=== PATIENT | female | born 1970 | race Caucasian/White ===

== ENCOUNTER 2020-02-17 15:12 | Outpatient (CLI) | payer BC, SELFPAY ==
--- NOTE | ~2020-02-17 | XR_ITS ---
EXAMINATION: XR sternum min 2V INDICATION: Sternal pain TECHNIQUE: AP and bilateral oblique views of the sternum were obtained. COMPARISON: None available FINDINGS: No definite abnormality of the sternum is identified. The chest wall soft tissues are unrem arkable. Surgical clips in the right upper quadrant are likely from prior cholecystectomy. IMPRESSION: 1. No definite abnormality of the sternum although sensitivity of radiographs is low. Reviewed, dictated and finalized at location A. IMPRESSION: 1. No definite abnormality of the sternum although sensitivity of radiographs i s low.
--- NOTE | ~2020-02-17 | XR_ITS ---
EXAMINATION: XR chest 2V DATE: 02/17/2020 15:50 INDICATION: Sternal pain, sensitive to touch TECHNIQUE: PA and lateral views of the chest are obtained. COMPARISON: 10/28/2017 FINDINGS: The lungs are free of acute opacities. There is no pleural effusion or pneumothorax. The ca rdiomediastinal silhouette is normal. There is mild thoracic spondylosis. Surgical clips in the right upper quadrant are likely from prior cholecystectomy. IMPRESSION: 1. No acute cardiopulmonary abnormality. Reviewed, dictated and finalized at location A.
== END 2020-02-17 15:13 | disposition home or self-care (01) ==
LOC: CHSIMG 15:14
PROVIDERS: PCP Family Medicine; Visit Provider Family Medicine
DX: R07.89 Other chest pain (principal)
CPT/HCPCS: 71046; 71120

== ENCOUNTER 2020-05-18 13:51 | Outpatient (CLI) | payer BC, SELFPAY ==
--- NOTE | ~2020-05-18 | US_ITS ---
EXAMINATION: US soft tissue chest EXAM DATE: 05/18/2020 14:13 INDICATION: Sternal region mass. TECHNIQUE: Multiple grayscale and Doppler images of the soft tissue chest were obtained (by a technol ogist who performed the scan) and subsequently reviewed. There is no prior study for comparison. FINDINGS: Scanning in the area of clinical concern midline, inferior to the xiphoid there is a subcutaneous mas s which is isoechoic to subcutaneous fat, most likely an encapsulated lipoma measuring 0.8 x 1.8 x 1. 7 cm. IMPRESSION: Fat echogenicity region which could be an encapsulated lipoma. Reviewed, dictated and finalized at location A. THESIOLOGISTS' ASSISTANT
== END 2020-05-18 13:52 | disposition home or self-care (01) ==
LOC: CHSIMG 13:52
PROVIDERS: PCP Family Medicine; Visit Provider Family Medicine
DX: R22.2 Localized swelling, mass and lump, trunk (principal)
CPT/HCPCS: 76604

== ENCOUNTER → 2021-04-05 11:56 | Outpatient (CLI) | payer OTHER, SELFPAY ==
--- NOTE | ~2021-04-05 | MM_ITS ---
EXAMINATION: MM screening [facility] BI w jessica HISTORY: Screening mammogram TECHNIQUE: Craniocaudal and mediolateral oblique 3-D tomosynthesis images were obtained and synthetic 2-D images were generated. CAD analysis was submitted and interpreted. COMPARISON: 05/04/2019, 01/28/2016, 12/11/2012 BREAST PARENCHYMAL COMPOSITION: There are scattered areas of fibroglandular density. FINDINGS: There is no evidence of suspicious mass, calcification, or architectural distortion to sugg est malignancy in either breast. There has been no suspicious interval change. IMPRESSION: 1. No mammographic evidence of malignancy. 2. Recommend routine screening mammography in one year. BI-RADS Category 1: Negative Reviewed, dictated and finalized at location B.
== END ==
PROVIDERS: Visit Provider Obstetrics & Gynecology
DX: Z12.31 Encounter for screening mammogram for malignant neoplasm of breast (principal)
CPT/HCPCS: 77063; 77067

== ENCOUNTER → 2021-05-28 02:56 | Outpatient (CLI) | payer OTHER, SELFPAY ==
[2021-05-28 20:04] LABS: SARS-CoV-2 RNA PCR Negative
== END ==
PROVIDERS: Visit Provider Internal Medicine Gastroenterology
DX: Z01.812 Encounter for preprocedural laboratory examination (principal); Z20.822 Contact with and (suspected) exposure to COVID-19
CPT/HCPCS: C9803; U0003; U0005

== ENCOUNTER 2021-05-31 00:29 | Day surgery (SDC) | payer OTHER, SELFPAY ==
[2021-05-15 09:20] VITALS: BMI 26.6
[2021-05-31 06:22] VITALS: BP 100/68; PULSE 90; RESP 18; TEMP 36.4; O2SAT 100; BMI 26.4
[2021-05-31] MEDS: LACTATED RINGERS 1,000 ML 150 ML IV CONT (06:31)
--- NOTE | 2021-05-31 06:51 | WPDANESEPPF ---
Anes - Initial Pre Proc Eval Procedure: Operation Date: 05/31/21 07:30 Proposed Procedures p Screening Colonoscopy - Negrito Castillo MD Date/Time: 05/31/21 06:51 Surgeon: Negriot Castillo MD Pre Op Diagnosis: neoplasm screening Patient Data Age: 50 Gender: F Height: 1.6 m Weight: 67.8 kg Last Vital Signs Temp 36.4 C L 05/31/21 06:22 Pulse 90 05/31/21 06:22 Resp 18 05/31/21 06:22 BP 100/68 05/31/21 06:22 Pulse Ox 100 05/31/21 06:22 Allergies Allergy/AdvReac Type Severity Reaction Status Date / Time No Known Allergies Allergy Verified 05/31/21 06:20 Home Medications Medication Instructions Recorded Confirmed Type No Home Medications 03/01/20 05/31/21 History Patient hx anesthesia problems: none Family hx anesthesia problems: none Results Review: All pre-operative results and documents have been reviewed as part of the pre-operative evaluation. 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 Smoker Surgical History Surgical History History of cholecystectomy History of tubal ligation Status post colposcopy Family History Family History Grandparent Carcinoma of colon Other Diabetes mellitus Social History Social History Smoking packs per day: 1 Smoking cigarettes per day: 20.0 Years smoked: 30 Smoking pack-years: 30.00 Smoking status: Current some day smoker Tobacco type: cigarettes Smoking end date: 01/14/21 Alcohol intake: current Substance use: unknown Substance use type: does not use Living arrangements: with family Anes - Eval Final PreProcedure Day of Procedure 05/31/21 06:51 Patient weight: overweight Heart: regular rate and rhythm Lungs: clear to auscultation Airway: Mallampati scale class II Neurological: alert and oriented Last oral intake: >/= 8 hours ASA classification: II Emergent: no Anesthetic plan: proceed Anesthesia type and monitoring: general GIVS and standard monitoring Results Review: All pre-operative results and documents have been reviewed as part of the pre-operative evaluation. Informed Consent: The patient's anesthetic plan and its attendant risks and benefits were discussed with the patient/family/POA. Questions were solicited and answers provided to the satisfaction of the patient/family/POA.
--- NOTE | 2021-05-31 07:17 | PM.HPGS ---
History of Present Illness History of Present Illness Consent: Risks, benefits, and alternatives have been discussed and questions answered. Patient agrees to proceed with procedure. Chief complaint: neoplasm screening Narrative: Santa Roach is a 50 year old female with last colonoscopy 7 years ago, history of polyps. Review of Systems Constitutional: Constitutional: Denies headache(s) and Denies weakness Eyes: Eyes: Denies blurry vision ENT: Reports Normal hearing present, Denies headache(s) and Denies neck pain Cardiovascular: Cardiovascular: Denies chest pain and Denies dyspnea Respiratory: Respiratory: Denies dyspnea Gastrointestinal: Gastrointestinal: Reports no additional gastrointestinal complaints Genitourinary: Genitourinary: Denies dysuria Musculoskeletal: Musculoskeletal: Denies neck pain Integumentary/Breasts: Skin/Breast: Denies dry skin Neurologic: Reports Normal hearing present, Denies headache(s) and Denies weakness Psychiatric: Psychiatric: Denies anxiety Endocrine: Endocrine: Denies change in body appearance Hematologic/Lymphatic: Hematologic/Lymphatic: Denies easy bleeding Allergic/Immunologic: Allergic/Immunologic: Denies urticaria PMFSH Past Medical History Medical History Colon polyp Herpes simplex without complication Smoker Surgical History Surgical History History of cholecystectomy History of tubal ligation Status post colposcopy Family History Family History Grandparent Carcinoma of colon Other Diabetes mellitus Social History Social History Smoking packs per day: 1 Smoking cigarettes per day: 20.0 Years smoked: 30 Smoking pack-years: 30.00 Smoking status: Current some day smoker Tobacco type: cigarettes Smoking end date: 01/14/21 Alcohol intake: current Substance use: unknown Substance use type: does not use Living arrangements: with family Meds Home Medications and Allergies Home Medications Medication Instructions Recorded Confirmed Type No Home Medications 03/01/20 05/31/21 History Allergies Allergy/AdvReac Type Severity Reaction Status Date / Time No Known Allergies Allergy Verified 05/31/21 06:20 Vital Signs Vital Signs - 24 hr 05/31/21 06:22 Temperature 97.5 F L Pulse Rate 90 Respiratory Rate 18 Blood Pressure 100/68 Pulse Oximetry 100 Exam Const: General: comfortable and no acute distress HENMT: General nose exam: Normal nares present Eyes: General: appearance normal, both eyes and all related structures Neck: Neck: no JVD Resp: Auscultation: clear to auscultation bilaterally Cardio: Rate: regular rate Rhythm: regular rhythm GI: Inspection: non-distended GI Palp: Yes Soft to palpation Skin: General skin exam: normal color Neuro: General: gait normal Speech: normal speech Extrem: General: normal to inspection Psych: Mental Status: mental status grossly normal Assessment and Plan Assessment and plan (1) Colon polyp: Code(s): K63.5 - Polyp of colon Status: Acute Assessment and Plan: colonoscopy
[2021-05-31 07:42] VITALS: BP 120/88; PULSE 77; RESP 19; O2SAT 99
[2021-05-31 07:52] VITALS: BP 82/54; PULSE 79; RESP 16; O2SAT 98
[2021-05-31 08:02] VITALS: BP 88/58; PULSE 73; RESP 13; O2SAT 99
== END 2021-05-31 08:09 | disposition home or self-care (01) ==
PROVIDERS: PCP Family Medicine; Visit Provider Internal Medicine Gastroenterology
PROC: 0DJD8ZZ Inspection of Lower Intestinal Tract, Via Natural or Artificial Opening Endoscopic (ICD-10-PCS; CPT 45378; principal; 2021-05-31 07:30)
DX: Z12.11 Encounter for screening for malignant neoplasm of colon (principal); D12.3 Benign neoplasm of transverse colon; K64.8 Other hemorrhoids; F17.210 Nicotine dependence, cigarettes, uncomplicated
CPT/HCPCS: 45385; 88305; J2704; J7120

== ENCOUNTER 2021-07-20 08:21 | Outpatient (CLI) | payer OTHER, SELFPAY ==
[2021-07-20 08:35] LABS: Basophils Absolute Auto 0.04 K/mm3 (0.00-0.10); Basophils Percent Auto 0.2 % (0.0-1.0); Hematocrit 38.9 % (35.0-49.0); Hemoglobin 13.3 g/dL (12.0-15.0); Immature Granulocyte Absolute 0.25 K/mm3 (0.00-0.00); Immature Granulocyte Percent A 1.3 % (0.0-0.0); Lymphocytes Absolute Auto 0.98 K/mm3 (1.10-4.50); Lymphocytes Percent Auto 5.1 % (18.0-42.0); Mean Corpuscular HGB Conc 34.2 g/dL (32.0-36.0); Mean Corpuscular Hemoglobin 30.4 pg (27.0-31.0); Mean Corpuscular Volume 88.8 fL (78.0-102.0); Mean Platelet Volume 8.6 fl (9.2-11.8); Monocytes Percent Auto 7.3 % (2.0-11.0); Neutrophils Absolute Auto 16.4 K/mm3 (1.7-7.2); Neutrophils Percent Auto 86.1 % (50.0-70.0); Platelet Count Result 289 K/mm3 (150-420); Red Blood Count 4.38 M/mm3 (4.20-5.40); Red Cell Distribution Width 12.1 % (11.6-14.4); White Blood Count 19.1 K/mm3 (4.8-10.8)
[2021-07-20 09:10] LABS: Alanine Aminotransferase 55 U/L (14-59); Albumin Level 3.7 g/dL (3.4-5.0); Alkaline Phosphatase 77 U/L (46-116); Amylase 22 U/L (25-115); Anion Gap 12 mmol/L (8-16); Aspartate Amino Transferase 27 U/L (15-37); Bilirubin,Total 0.7 mg/dL (0.00-1.00); Blood Urea Nitrogen 13 mg/dL (7-18); Carbon Dioxide 27 mmol/L (21-32); Chloride 98 mmol/L (98-108); Estimated Glomerular Filt Rate > 60; Glucose 118 mg/dL (70-99); Lipase 37 U/L (73-393); Osmolality Calculated 285 mOsm/kg (285-295); Potassium 3.5 mmol/L (3.5-5.1); Sodium 137 mmol/L (136-145); Total Protein 7.3 g/dL (6.4-8.2)
== END 2021-07-20 08:22 | disposition home or self-care (01) ==
LOC: CHSLAB 08:22
PROVIDERS: PCP Family Medicine; Visit Provider Family Medicine
DX: R10.9 Unspecified abdominal pain (principal)
CPT/HCPCS: 36415; 80053; 82150; 83690; 85025

== ENCOUNTER 2021-08-27 14:58 | Outpatient (CLI) | payer OTHER, SELFPAY ==
--- NOTE | 2021-08-29 09:16 | WPDHOLTEREM ---
Holter/Event Monitor Holter/Event Monitor Date of procedure: 08/27/21 Holter/Event Procedure: 48 Hr Holter Monitor Indications: Palpitations Conclusion: 1. 24 hour holter monitor on 08/27/21. 2. Underlying rhythm is sinus rhythm. HR range 48-126 bpm; average HR 87 bpm. 3. There are 3 premature supraventricular complexes and 1 supraventricular couplet. No supraventricular tachycardia. 4. No premature ventricular complexes. No ventricular tachycardia. 5. No sinoatrial or atrioventricular blocks. No significant pauses greater than 2 seconds. 6. Patient reports symptoms of heart speeding up which demonstrate sinus rhythm, HR range 90-96 bpm.
== END 2021-08-27 14:59 | disposition home or self-care (01) ==
PROVIDERS: PCP Family Medicine; Visit Provider Family Medicine
DX: R00.2 Palpitations (principal)
CPT/HCPCS: 93225; 93226

== ENCOUNTER 2021-09-13 12:07 | Outpatient (CLI) | payer SELFPAY ==
--- NOTE | ~2021-09-13 | CT_ITS ---
EXAMINATION: CT abdomen pelvis w con DATE: 09/13/2021 12:51 INDICATION: Mid and upper abdominal pain TECHNIQUE: Computed tomography (CT) of the abdomen and pelvis was performed with 100 CC Omnipaque 350 intravenous contrast. Automated exposure control and iterative reconstruction technique were employe d. Exam dose: 315.30 mGy-cm total exam DLP. COMPARISON: None. FINDINGS: The lung bases are clear. Normal heart size. No pericardial or pleural effusion. Status post cholecystectomy, which likely accounts for mild prominence of the bile ducts. No hepatic, splenic, pancreatic, and adrenal or renal space-occupying mass lesion is detected. No uri nary tract calculus or hydroureteronephrosis. Normal caliber of the abdominal aorta. There is an 8 x 11 mm irregular prominent calcification within an area of irregular ill-defined soft tissue thickening in the lower central abdomen; differential diabrosis includes appendicolith and trevor endicitis versus less likely carcinoid tumor, calcified stone within Meckel's diverticulum with surro unding inflammation. No intraperitoneal or retroperitoneal or pelvic mass lesion or adenopathy or ascites. The urinary bladder, uterus and adnexal areas are unremarkable except for moderate prominence of left adnexal veins. There is no bowel obstruction, bowel wall thickening, pneumatosis or intraperitoneal free air. Included skeletal structures are unremarkable. IMPRESSION: 8 x 11 millimeter calcification in the lower mid abdomen with surrounding irregular soft tissue thickening; findings are most suggestive of distal calcified appendicolith and distal appendi citis; less likely differential diagnostic considerations include carcinoid tumor, stone within Mecke l's diverticulum with surrounding inflammation Dr. Harry telephoned the report on 09/13/20[address] Regalado's cellphone voicemail Reviewed, dictated and finalized at Location A. Reviewed, dictated and finalized at location A. IMPRESSION: 8 x 11 millimeter calcification in the lower mid abdomen with surr ounding irregular soft tissue thickening; findings are most suggestive of dista l calcified appendicolith and distal appendicitis; less likely differential samuel gnostic considerations include carcinoid tumor, stone within Meckel's diverticu lum with surrounding inflammation Dr. Harry telephoned the report on 09/13/2021 [address] Regalado's ce llphone voicemail
[2021-09-13 12:32] LABS: Estimated Glomerular Filt Rate > 60
== END 2021-09-13 12:08 | disposition home or self-care (01) ==
LOC: CHSIMG 12:08
PROVIDERS: PCP Family Medicine; Visit Provider Family Medicine
DX: R10.9 Unspecified abdominal pain (principal)
CPT/HCPCS: 74177; Q9967

== ENCOUNTER 2021-09-14 05:30 | Observation (INO) | payer OTHER, SELFPAY ==
[2021-09-14 05:32] VITALS: BP 139/93; PULSE 74; RESP 17; TEMP 36.8; O2SAT 100
--- NOTE | 2021-09-14 06:07 | ED.ABDPAIN ---
HPI - Abdominal Pain General Chief Complaint: Abdominal Pain Stated Complaint: appendicitis (per CT scan) Time Seen by Provider: 09/14/21 05:33 Source: patient, family and RN notes reviewed History of Present Illness HPI narrative: 50-year-old female presented to the emergency department for evaluation after an outpatient CT showed she had acute appendicitis. Patient had a Campylobacter infection in July and was treated with antibiotic. Patient had residual abdominal pain and was continue to have follow-up with her primary care physician. Since the pain had lasted for approximately 8 weeks and her lower abdominal pain was beginning to worsen a CT scan was ordered. Patient had a CT scan today and was called after getting home and told to present to the emerge department due to the CT scan showing appendicitis. Patient does have prior history of cholecystectomy and tubal ligation. Related Data Home Medications Medication Instructions Recorded Confirmed calcium mg PO 09/14/21 multivitamin [One A Day Vitamin] tablet 09/14/21 omega-3 fatty acids [[place] 3 Fish PO 09/14/21 Oil] Allergies Allergy/AdvReac Type Severity Reaction Status Date / Time No Known Allergies Allergy Verified 09/14/21 05:37 Review of Systems Review of Systems: CONSTITUTIONAL: Denies fever, chills, or sweats. EYES: Denies visual changes, redness, or discharge. ENT: Denies rhinorrhea, congestion, sore throat, or otalgia. CARDIOVASCULAR: Denies chest pain, palpitations, or edema. RESPIRATORY: Denies cough or dyspnea. GASTROINTESTINAL: Worsening lower abdominal pain GENITOURINARY: Denies dysuria or hematuria. SKIN: Denies rash or itching. MUSCULOSKELETAL: Denies back pain, joint pain, or myalgia. NEUROLOGIC: Denies headache, numbness, or weakness. [facility], [facility] Past Medical History Medical History Colon polyp Herpes simplex without complication Smoker Surgical History Surgical History History of cholecystectomy History of tubal ligation Status post colposcopy Family History Family History Grandparent Carcinoma of colon Other Diabetes mellitus Social History Social History Smoking packs per day: 1 Smoking cigarettes per day: 20.0 Years smoked: 30 Smoking pack-years: 30.00 Smoking status: Current some day smoker Tobacco type: cigarettes Smoking end date: 01/14/21 Alcohol intake: current Substance use: unknown Substance use type: does not use Exam Narrative: APPEARANCE: Well appearing, no pain, no distress, well-nourished. HEAD: normocephalic, atraumatic. EYES: PERRLA/EOMI, conjunctivae clear. NOSE: Normal no drainage EARS:TMS clear with good light reflex. THROAT: Pharynx clear, no exudate. NECK: Supple. No adenopathy, no masses. RESPIRATORY: Airway patent, respirations nonlabored. Clear to auscultation bilaterally, no rales, rhonchi, wheezing. CARDIOVASCULAR: Regular rate and rhythm without murmurs rubs or gallops. ABDOMINAL: Midline and right lower quadrant tenderness to palpation. MUSCULOSKELETAL: Moves all extremities. Strength/ROM intact, No edema, No calf tenderness. NEURO: Alert. Cranial nerves II through XII intact. Good gait. Good coordination SKIN: Warm, dry. Normal Color Course Course Emergency Course: Dr. Booker was consulted due to the patient's CT scan. Patient was treated with a dose of Zosyn. Patient was started on IV fluids. Blood cultures are pending. Patient will be admitted and will be evaluated by surgery. Patient was updated on the plan for admission. All questions concerns were addressed. Patient was stable at time of admission. Vital Signs Vital signs: Vital Signs Temperature 98.2 F 09/14/21 05:32 Pulse Rate 74 09/14/21 05:32 Respiratory Rate 17 09/14/21 05:32 Blood Pressure 139/93 H 09/14/21 0
[2021-09-14 06:14] LABS: Basophils Percent Auto 0.3 % (0.2-1.2); Eosinophils Absolute Auto 0.1 K/mm3 (0-0.3); Eosinophils Percent Auto 1.1 % (0-4.4); Hematocrit 39.9 % (37.0-47.0); Hemoglobin 13.3 g/dL (12.0-15.0); Immature Granulocyte Absolute 0.01 K/mm3 (0.00-0.031); Immature Granulocyte Percent A 0.2 % (0-0.5); Lymphocytes Absolute Auto 2.39 K/mm3 (0.9-3.2); Lymphocytes Percent Auto 38.9 % (18.3-44.2); Mean Corpuscular HGB Conc 33.3 g/dl (32-36); Mean Corpuscular Hemoglobin 30.6 pg (26-34); Mean Corpuscular Volume 91.7 fl (80-100); Mean Platelet Volume 9.6 fl (7.4-10.4); Monocytes Absolute Auto 0.6 K/mm3 (0.1-0.6); Monocytes Percent Auto 9.8 % (2.6-8.5); Neutrophils Absolute Auto 3.1 K/mm3 (1.3-6.7); Neutrophils Percent Auto 49.7 % (45.5-73.1); Platelet Count Result 258 k/mm3 (150-375); Red Blood Count 4.35 M/mm3 (4.2-5.4); Red Cell Distribution Width 13.2 % (11.5-14.5); White Blood Count 6.1 K/mm3 (4.5-10.0)
[2021-09-14 06:24] LABS: Alanine Aminotransferase 23 U/L (4-35); Albumin Level 4.7 g/dL (3.5-5.1); Alkaline Phosphatase 46 U/L (38-126); Anion Gap 5 mmol/L (8-16); Aspartate Amino Transferase 28 U/L (14-36); Bilirubin,Total 0.2 mg/dL (0.2-1.3); Blood Urea Nitrogen 14 mg/dL (7-17); Calcium 9.8 mg/dL (8.4-10.2); Carbon Dioxide 28 mmol/L (22-30); Chloride 107 mmol/L (98-107); Estimated CRCL calculation 85 ml/min; Estimated Glomerular Filt Rate > 60; Glucose 90 mg/dL (65-110); Potassium 3.6 mmol/L (3.4-5.0); Sodium 140 mmol/L (137-145)
[2021-09-14 07:10] LABS: Add Urine Microscopic? YES; Appearance Urine Clear (Clear); Bilirubin Urine Negative (Negative); Blood Urine 1+ (Negative); Color Urine Straw (Yellow); Glucose Urine UA Negative (Negative); Ketones Urine Negative (Negative); Leukocyte Esterase Ur Negative LEU/UL (Negative); Nitrate Urine Negative (Negative); Protein Urine Negative (Negative); RBC Urine 0-2 /hpf (0-2); Urobilinogen Urine Negative mg/dL (<2.0); WBC Urine 0-3 /hpf
[2021-09-14 07:14] LABS: Specific Grav Ur 1.003 (1.001-1.035)
[2021-09-14 08:00] VITALS: BP 128/76; PULSE 73; RESP 16; O2SAT 100
--- NOTE | 2021-09-14 08:10 | ADMGEN ---
This patient, Santa Roach, was admitted to Medical Room 343-01. Patient/family oriented to hospital policies and general routines including ID bracelet, bed and alarms, visiting hours, pain management, procedures, bathroom and other care routines, personal items, smoking policy, room service/diet, and visiting hours. Information on how to activate the Rapid Response Team has been discussed. Patient/Family are encouraged to report perceived risks to care and to ask questions if they do not understand what they are told or what they should do.
[2021-09-14 08:14] VITALS: BP 122/70; PULSE 70; RESP 16; TEMP 36.3; O2SAT 100; BMI 25.4
[2021-09-14 08:24] VITALS: O2SAT 99
[2021-09-14] MEDS: SODIUM CHLORIDE 0.9% IV 1,000 ML 150 ML IV CONT (09:37)
[2021-09-14 09:45] VITALS: BMI 26.6
[2021-09-14 15:23] VITALS: BP 105/69; PULSE 62; RESP 16; TEMP 36.9; O2SAT 99
--- NOTE | 2021-09-14 16:18 | PM.IMHP ---
H&P: HPI History of Present Illness Date/Time: 09/14/21 09:18 This is a pleasant 50-year-old white female who presented to the emergency department for evaluation after an outpatient CT showed she had possible but in definite acute appendicitis. Review his report shows that there was an area of inflammation in the lower mid abdomen next to a 8 x 11 mm area of calcification. Possible abilities were an appendicolith, calcification within a carcinoid tumor of the small bowel or a calcification within a Meckel's diverticulum. Therefore, the patient was called and was asked to come the emergency room and she came [place]. Further history in the emergency room revealed that the patient had a Campylobacter infection in July and was treated with antibiotics. On further questioning and with the patient looking up her pharmacy record she was treated with a Zithromax in 2 different times the most recent time being on September 05 for 3 days. Patient had residual abdominal pain and was continue to have follow-up with her primary care physician. Since the pain had lasted for approximately 8 weeks and her lower abdominal pain was beginning to worsen an outpatient CT scan was ordered. Patient had a CT scan on 09/13 and was called after getting home and told to present to the ED due to the CT scan findings Chief Complaint: chronic low level abdominal pain Review of Systems Review of Systems: All systems reviewed & are unremarkable except as noted in HPI and below (HPI) Constitutional: Constitutional: Reports as per HPI, Denies chills and Denies fever(s) Eyes: Eyes: Reports no additional eye complaints ENT: Reports Normal hearing present and Denies dizziness Cardiovascular: Cardiovascular: Reports no additional cardiovascular complaints, Denies chest pain and Denies irregular heart rhythm Respiratory: Respiratory: Reports no additional respiratory complaints Comments: History of many years of smoking. Now does not smoke much. Gastrointestinal: Gastrointestinal: Denies abdominal pain, Denies bloating, Reports change in bowel habits (Had diarrhea when she was having the bowel infection with Campylobacter. ), Denies dyspepsia, Denies diarrhea and Denies vomiting Comments: Over the last week she has been having fairly normal bowel movements. She has also been having mild lower abdominal pain that she rates at 1 to 2/10. Recent history of possible Campylobacter infection with diarrhea syndrome. Genitourinary: Genitourinary: Denies hematuria Comments: History of herpes simplex infection. Musculoskeletal: Musculoskeletal: Denies back pain Integumentary/Breasts: Skin/Breast: Reports system reviewed and no additional complaints, except as docu Neurologic: Reports Normal hearing present, Denies Abnormal speech present, Denies confusion and Denies dizziness Psychiatric: Psychiatric: Reports no additional psychiatric complaints and Denies confusion Endocrine: Endocrine: Reports no additional endocrine complaints Hematologic/Lymphatic: Hematologic/Lymphatic: Denies easy bleeding and Denies easy bruising Allergic/Immunologic: Allergic/Immunologic: Reports no additional allergic/immunologic complaints PMF Past Medical History Medical History Colon polyp Herpes simplex without complication History of campylobacteriosis Lower abdominal pain, unspecified (~07/2021) Smoker Surgical History Surgical History History of cholecystectomy History of tubal ligation Status post colposcopy Family History Family History Grandparent Carcinoma of colon Other Diabetes mellitus Social History Social History Smoking packs per day: 0.5 Smoking cigarettes per day: 10.0 Years smoked: 25 Smoking pack-years: 12.50 Smoking status: Light tobacco smoker Tobacco type:
[2021-09-14 20:39] VITALS: BP 111/66; PULSE 60; RESP 16; TEMP 36.2; O2SAT 99
[2021-09-15 05:19] VITALS: BP 103/62; PULSE 64; RESP 14; TEMP 36.3; O2SAT 98
[2021-09-15 05:34] LABS: Basophils Percent Auto 0.8 % (0.2-1.2); Eosinophils Absolute Auto 0.1 K/mm3 (0-0.3); Eosinophils Percent Auto 1.6 % (0-4.4); Hematocrit 35.4 % (37.0-47.0); Immature Granulocyte Absolute 0.01 K/mm3 (0.00-0.031); Immature Granulocyte Percent A 0.2 % (0-0.5); Lymphocytes Absolute Auto 1.74 K/mm3 (0.9-3.2); Mean Corpuscular HGB Conc 33.9 g/dl (32-36); Mean Corpuscular Hemoglobin 30.4 pg (26-34); Mean Corpuscular Volume 89.6 fl (80-100); Mean Platelet Volume 9.2 fl (7.4-10.4); Monocytes Absolute Auto 0.5 K/mm3 (0.1-0.6); Monocytes Percent Auto 10.1 % (2.6-8.5); Neutrophils Absolute Auto 2.6 K/mm3 (1.3-6.7); Neutrophils Percent Auto 52.3 % (45.5-73.1); Platelet Count Result 227 k/mm3 (150-375); Red Blood Count 3.95 M/mm3 (4.2-5.4); Red Cell Distribution Width 13.2 % (11.5-14.5)
[2021-09-15 05:42] LABS: Anion Gap 4 mmol/L (8-16); Blood Urea Nitrogen 11 mg/dL (7-17); Calcium 8.6 mg/dL (8.4-10.2); Carbon Dioxide 28 mmol/L (22-30); Chloride 109 mmol/L (98-107); Estimated CRCL calculation 73 ml/min; Estimated Glomerular Filt Rate > 60; Glucose 98 mg/dL (65-110); Sodium 141 mmol/L (137-145)
--- NOTE | 2021-09-15 08:22 | PM.DS ---
DS: Admitting Diagnosis Discharge Date 09/15/2021 Admitting Diagnosis Abdominal pain rule out appendicitis DS: Discharge Diagnosis Discharge Diagnosis (1) Lower abdominal pain, unspecified: Onset Date: ~07/2021 Code(s): R10.30 - Lower abdominal pain, unspecified Status: Acute Assessment and Plan: This at this time is of unknown etiology although there is some soft tissue swelling and some swelling near 1 loop of small bowel. Differential diagnosis that we are working with right now is small-bowel diverticulitis, Meckel's diverticulitis, and or residual enteritis related to either a viral etiology or the recurrence of Campylobacter. The latter is doubted in view of the fact the patient is not having diarrhea. Current plan is for discharge and treatment of possible small-bowel diverticulitis with Augmentin twice a day for 10 days. I will then follow her up in the office. In the meantime will go ahead with a nuclear medicine Meckel's diverticular scan to rule out Meckel's diverticulum. She knows that if it appears that there is a Meckel diverticulum may consider laparoscopic exploration with small bowel resection in the area of the Meckel's. If that is indicated we may also carefully look at the appendix and consider whether not it would be right to remove it at the same time since it would be easy. We will await further studies as an outpatient to make further decisions. (2) Colon polyp: Code(s): K63.5 - Polyp of colon Status: Acute Assessment and Plan: Patient had a colonoscopy little over a year ago and had 1 or 2 polyps removed and no diverticulosis was mentioned. DS: Summary Hospital Course Hospital Course: Thepatient had uneventful hospital course. She was started on IV antibiotics to cover suspected small-bowel diverticulitis or appendicitis although we doubt it the latter. Her white count came down to normal overnight. Her pain significantly dissipated such that she only had some tenderness to deeper palpation in the lower mid abdomen. She did not run a fever overnight and was feeling well and ready to gradually increase her diet on the day of discharge. Time spent discussing smoking cessation with patient: more than 10 minutes Status at Discharge Cognitive/behavioral status at discharge: Normal Functional status at discharge: independent ambulation Overall status at discharge: patient is back to baseline Time Spent with Patient Time attestation: Total time spent providing and/or coordinating discharge services:41 min Time spent: Greater than 30 minutes Specific discharge activities: plans were made to do an outpatient Meckel's nuclear med medicine scan Patient will follow-up with me in about 9 days Patient will take approximately 1 week of oral antibiotics to treat suspected small-bowel diverticulitis. Instructions were given to watch for recurrent diarrhea and call if she had it. I encouraged patient to stay off her fish oil and to stay away from smoking which she states she quit about 1 week ago after going back to a light amount of cigarette smoking. This will help take away mitigating factors. Patient will stick to a low fiber diet until after her visit with me and she is off antibiotics. Will consider small-bowel follow-through to check the small bowel for diverticuli and or a Meckel's that does not contain gastric mucosa if the Meckel's nuclear medicine scan is negative. Exam Const: General: cooperative, comfortable, alert and awake Orientation/consciousness: patient oriented x3 HENMT: Head: normal to inspection Mouth: Yes moist mucous membranes Eyes: Sclera: sclerae normal Pupils: Equal, round and reactive pupils present Neck: Neck: normal visual inspection and no JVD Chest: Chest palpation & inspection: normal inspection of the chest Resp: Effort & Inspection: normal respiratory effort Auscultation: clear to auscultation bilaterally Cardio: Jugular
[2021-09-15 08:39] VITALS: O2SAT 99
== END 2021-09-15 10:40 | disposition home or self-care (01) ==
LOC: ANHED 05:59 → ANH3MED 07:35
PROVIDERS: Admitting Provider Surgery; Emergency Provider Emergency Medicine; PCP Family Medicine; Visit Provider Surgery
DX: R10.30 Lower abdominal pain, unspecified (principal); Z28.21 Immunization not carried out because of patient refusal; Z90.49 Acquired absence of other specified parts of digestive tract; Z86.010 Personal history of colon polyps; Z87.891 Personal history of nicotine dependence
CPT/HCPCS: 36415; 80048; 80053; 81001; 85025; 87040; 96365; 96366; 96368; 96374; 96375; 96376; 99285; G0378; J0131; J2543; J7030

== ENCOUNTER 2021-09-19 11:27 | Outpatient (CLI) | payer OTHER, SELFPAY ==
--- NOTE | ~2021-09-19 | NM_ITS ---
EXAMINATION: NM Marino's DATE: 09/19/2021 13:43 INDICATION: Lower abdominal pain TECHNIQUE: 15.4 mCi Tc-99m was administered by intravenous route. Serial scintigrams of the abdomen and pelvis were obtained the frontal plane over the course of 60 minutes. Additional 65 minute delaye d image was obtained to include the entire bladder. COMPARISON: CT dated 09/13/2021 FINDINGS: Expected accumulation of activity is seen in the stomach. Small amount of excreted activity is seen i n the bilateral kidneys which accumulates in the bladder on the delayed images. No other foci of abno rmal uptake in the abdomen or pelvis to suggest ectopic gastric tissue in the setting of Meckel's div erticulum. IMPRESSION: 1. Normal study. Reviewed, dictated and finalized at location A. IMPRESSION: 1. Normal study.
--- NOTE | ~2021-09-19 | XR_ITS ---
XR thoracic spine 3V DATE: 09/19/2021 16:32 INDICATION: Central thoracic pain for 2 months. No known injury. TECHNIQUE: AP, lateral, swimmer views COMPARISON: 09/26/2007 thoracic spine FINDINGS: There is mild to moderate degenerative spurring of the thoracic spine since 09/16/2007. No f racture, dislocation or bone destruction. The thoracic pedicles are intact. No paraspinal soft tissue thickening. Surgical clips, right upper quadrant, likely due to cholecystectomy. IMPRESSION: Mild to moderate degenerative spurring of the thoracic spine Reviewed, dictated and finalized at location A.
== END 2021-09-19 11:28 | disposition home or self-care (01) ==
PROVIDERS: PCP Family Medicine; Visit Provider Surgery
DX: M54.6 Pain in thoracic spine (principal); R10.30 Lower abdominal pain, unspecified
CPT/HCPCS: 72072; 78290; A9512

== ENCOUNTER 2021-09-25 16:37 | Outpatient (CLI) | payer OTHER, SELFPAY ==
--- NOTE | ~2021-09-25 | XR_ITS ---
EXAMINATION: XR chest 2V DATE: 09/25/2021 16:54 INDICATION: Chest pain. Shortness of breath. TECHNIQUE: Frontal and lateral views of the chest were obtained. COMPARISON: Chest 2 views 02/17/2020 FINDINGS: The chest demonstrates clear lungs without pneumonia, pleural effusion, or pneumothorax. Th e heart size is normal. Surgical clips in the right upper quadrant are likely from cholecystectomy. IMPRESSION: 1. No acute cardiopulmonary disease. Reviewed, dictated and finalized at location A.
== END 2021-09-25 16:38 | disposition home or self-care (01) ==
LOC: CHSIMG 16:38
PROVIDERS: PCP Family Medicine; Visit Provider Family Medicine
DX: M54.6 Pain in thoracic spine (principal)
CPT/HCPCS: 71046

== ENCOUNTER 2021-09-30 14:43 | Outpatient (RCR) | payer OTHER, SELFPAY ==
--- NOTE | 2021-09-30 15:56 | PTOPEVAL ---
Thank you for referring Santa Roach to [facility].? The patient is scheduled to be seen for therapy? ____x/week for ___ weeks. Please review, sign, date and return this plan of care GABY. I agree with and certify that the following plan of care is medically necessary. Referring Physician Date Admitting Provider: Attending Provider: Júnior Regalado MD Referring Provider: *PT Outpatient Evaluation Start: 09/30/21 15:04 Freq: Status: Active Protocol: Document 09/30/21 15:05 Estee (Rec: 09/30/21 15:55 [facility] [id number]) Therapy Assessment Status Assessment Status Assessment Status Evaluation Outpatient Past Medical History Neurological History Hx Neurological Disorders No Significant History Cardiovascular History Hx Cardiac Disorders No Significant History Respiratory History Hx Respiratory Disorders No Significant History Gastrointestinal History Hx Cholecystectomy Yes Hx Polyps Yes Genitourinary History Hx Genitourinary Disorders No Significant History Musculoskeletal History Hx Musculoskeletal Disorders No Significant History Hematological History Hx Hematological Disorders No Significant History Endocrine History Hx Endocrine Disorders No Significant History HEENT History Hx HEENT Disorders No Significant History Integumentary History Hx Skin Disorders No Significant History Reproductive History Hx Post Menopausal Yes Psychosocial History Hx Psychiatric Disorders No Significant History Pain History History of Any Previous or Ongoing No Significant History Instance of Pain Anesthesia History Hx Anesthesia Reactions No Significant History Evaluation Information Problem Diagnosis upper back pain, bilateral shoulder and upper trap pain Onset 07/30/21 Additional Evaluation Detail oswestry = 22% functionally declined Subjective Information patient reports her pain began Query Text:As Reported By Patient/ around 07/30/21. she reports Family she began notcing some pain when she was sick for several weeks with food poisoning. she reports she was sitting and inactive a lot. she reports the pain initially was light but when she went back to work it was worse. she reports now it feels as tho it is getting better. she reports she had no rash with this pain. she reports she has no pain,
== END 2021-09-30 16:21 | disposition home or self-care (01) ==
LOC: CHSPT 14:43
PROVIDERS: PCP Family Medicine; Visit Provider Family Medicine
DX: M54.6 Pain in thoracic spine (principal)
CPT/HCPCS: 97014; 97110; 97161; G0283

== ENCOUNTER 2021-10-11 07:33 | Outpatient (CLI) | payer OTHER, SELFPAY ==
--- NOTE | ~2021-10-11 | XR_ITS ---
EXAMINATION: XR UGIAC sm bowel esophagram EXAM DATE: 10/11/2021 09:41 INDICATION: Abdominal pain. Abnormal CT scan. Patient states symptoms have been improving, have nearl y resolved. TECHNIQUE: Standard single and double contrast barium esophagram and upper GI examination was perform ed by radiologist Mann Alston M.D.. More contrast was ingested and then a small bowel follow-through was also acquired. Spot images of terminal ileum. Pulsed dose reduction fluoroscopy was used with flu oroscopic time of 0.4 minutes. The DAP for this procedure was 6.3 Gycm2. A total of 354 images obta ined for the exam. Correlation is made to CT abdomen pelvis 09/13/2021. FINDINGS: The pharynx is symmetric and without evidence of mass lesion or mucosal irregularity. Ther e is no esophageal stricture, diverticulum or mass identified. Gastroesophageal junction is normal i n appearance. Reflux was not demonstrated during this examination. The stomach has a normal appearance without evidence of mass lesion, ulceration or filling defect. T here is normal rugal fold pattern. The duodenum and duodenal sweep are normal in appearance. Small bowel is normal in caliber. Normal jejunal and ileal folds. Initial bolus of contrast caught du mping to the cecum, terminal ileum has a normal appearance. No small bowel diverticula identified. IMPRESSION: Unremarkable esophagram, upper GI, small bowel series. Reviewed, dictated and finalized at location B.
== END 2021-10-11 07:34 | disposition home or self-care (01) ==
LOC: CHSIMG 07:34
PROVIDERS: PCP Family Medicine; Visit Provider Surgery
DX: R10.30 Lower abdominal pain, unspecified (principal)
CPT/HCPCS: 74240; 74246; 74248

== ENCOUNTER 2021-10-28 15:56 | Outpatient (CLI) | payer OTHER, SELFPAY ==
--- NOTE | ~2021-10-28 | XR_ITS ---
EXAMINATION: XR sacrum coccyx min 2V DATE: 10/28/2021 16:35 INDICATION: Sacrococcygeal pain for 2 weeks. TECHNIQUE: 3 views of the sacrum and coccyx were obtained. COMPARISON: None. FINDINGS: Bone alignment is normal. No fracture. There is mild osteoarthritis of the sacroiliac joint s characterized by tiny osteophytes. No evidence of inflammatory arthropathy. IMPRESSION: 1. Mild osteoarthritis of the sacroiliac joints. Reviewed, dictated and finalized at location B.
== END 2021-10-28 15:57 | disposition home or self-care (01) ==
LOC: CHSIMG 15:58
PROVIDERS: PCP Family Medicine; Visit Provider Family Medicine
DX: M53.3 Sacrococcygeal disorders, not elsewhere classified (principal)
CPT/HCPCS: 72220

== ENCOUNTER 2022-04-30 14:23 | Outpatient (CLI) | payer OTHER, SELFPAY | END 2022-04-30 14:24 | disposition home or self-care (01) | LOC: ANHSURGERY 14:28 | PROVIDERS: PCP Family Medicine; Visit Provider Obstetrics & Gynecology | DX: N87.9 Dysplasia of cervix uteri, unspecified (principal); Z01.818 Encounter for other preprocedural examination | CPT/HCPCS: 36415; 86850; 86900; 86901 ==

== ENCOUNTER 2022-05-07 00:47 | Day surgery (SDC) | payer OTHER, SELFPAY ==
[2022-04-30 14:00] VITALS: BMI 26.6
--- NOTE | 2022-04-30 14:04 | SUR.PREOP ---
Report to the Outpatient Waiting Room, entrance under the green pavilion located off [facility], at time _0600 on date _05/07/22 . Planned Procedure Time: _0730 Time changes happen often and if your time is changed the preop area will call you the afternoon before. - You and your visitor will be asked to self-screen and do not enter if you have any COVID symptoms. - We encourage only one visitor and NO visitors under age 16 are allowed at this time. Your visitor will receive communication by the phone number that is given day of service. - The patient visitor is requested to social distance or may leave the building when not with patient due to restrictions. - A mask is required within the hospital. Patients may have clear liquids (water, carbonated beverages, clear teas, apple juice) until 3 hours prior to surgery with a maximum of 20 ounces. - No food from midnight until time of surgery - Infants may have breast milk until 4 hours before surgery, formula 6 hours prior to surgery. - Children will be allowed to drink immediately following surgery. If applicable, please bring a bottle or sippy cup to assist with drinking. Juice, water, soda, and popsicles are readily available. For infants on formula, please bring formula the day of surgery. Pacifiers are allowed. Take the following medications with a SIP of water the morning of surgery: ____n/a Medications to discontinue per physician __vitamin supplements Date to take last dose_05/04/22 Please no make-up, nail [place] citizen, hairspray, perfume, deodorant, or body powder the day of surgery. No jewelry (including any body piercings) or valuables the day of surgery, leave them at home. Please take a shower or bath the night before, or the morning of, surgery with an antibacterial soap. Wear comfortable, loose fitting clothing. Children are encouraged to wear pajamas. - Jewelry must be removed prior to entering the operating room. Rings and piercings that are not removed may be cut off. - The hospital will not accept responsibility for valuables. - Please leave all valuables, including medications, at home the day of surgery. If you are going home after surgery, a licensed cement mixer driver must drive you home. - NO public transportation without another adult. - We recommend that an adult stay with you for 24 hours following discharge. - We also recommend that you do not drive, make important decision, drink alcoholic beverages, or take any drugs that were not prescribed by your health care provider for at least 24 hours after your discharge time. For Pediatric surgeries, we recommend two adults accompany the child home. Follow any additional instructions given to you from your surgeon. If you or anyone in your household have experienced Covid symptoms in the past week, please notify your surgeon or the nurse liaison at the phone number below for possible testing. Telephone instructions given to _angel molina and asked if any additional questions and then verbalized understanding. Patient advised to call surgeon office or pre surgery nurse liaison [phone] if any additional questions.
--- NOTE | 2022-05-06 16:18 | PM.IMHP ---
H&P: HPI History of Present Illness Date/Time: 05/06/22 16:18 Chief Complaint: Persistent dysplasia Narrative: She is scheduled for robotic assisted laparoscopic vaginal hysterectomy with bilateral salpingo-oophorectomy for persistent dysplasia. She has had intermittent low-grade Pap smears.? Her biopsies have shown low-grade also.? Her last biopsy also showed TREVER 1.? The endocervical was positive for TREVER 1.?She was recommended for ablative procedure. Patient states she does not want to have to keep getting evaluated with colposcopies.? She desires definitive treatment of the dysplasia which would be a hysterectomy.? She was made aware that even when hysterectomies are performed due to persistent dysplasia that there is a chance that there can be some abnormal cells on the vagina.? Generally Pap smears do not have to be done after a hysterectomy for certain conditions but if a hysterectomy is performed for persistent dysplasia than it is recommended to get a Pap smear for several years after the hysterectomy.?If they are abnormal then still may need to get a colposcopy. She has been counseled regarding risk of LEEP and risk of hysterectomy and robotic assisted hysterectomy. She continues to desire hysterectomy. Review of Systems Review of Systems: All systems reviewed & are unremarkable except as noted in HPI and below Constitutional: Constitutional: Reports no additional constitutional complaints and Denies headache(s) Eyes: Eyes: Denies spots in vision ENT: Reports system reviewed and no additional complaints, except as documented and Denies headache(s) Cardiovascular: Cardiovascular: Denies chest pain and Denies dyspnea Respiratory: Respiratory: Denies dyspnea Gastrointestinal: Gastrointestinal: Reports no additional gastrointestinal complaints Genitourinary: Genitourinary: Reports amenorrhea Musculoskeletal: Musculoskeletal: Reports no additional musculoskeletal complaints Integumentary/Breasts: Skin/Breast: Denies breast mass and Denies rash Neurologic: Denies headache(s) Psychiatric: Psychiatric: Reports no additional psychiatric complaints [facility] Past Medical History Medical History Colon polyp Constipation Herpes simplex without complication History of campylobacteriosis Lower abdominal pain, unspecified (~07/2021) Rectal pressure Segmental ileitis Smoker Surgical History Surgical History History of cholecystectomy History of tubal ligation Status post colposcopy Family History Family History Grandparent Carcinoma of colon Other Diabetes mellitus Social History Social History Smoking packs per day: 0.5 Smoking cigarettes per day: 10.0 Years smoked: 25 Smoking pack-years: 12.50 Smoking status: Former smoker Tobacco type: cigarettes Second hand tobacco smoke exposure: No Smoking end date: 08/31/21 Additional smoking assessment comments: use currently of nicorette gum,smoking 23 years Alcohol intake: current Drinks per week: 1 Alcohol use details: 1 every other month Substance use: never Substance use type: does not use Living arrangements: with family Spiritual care concerns: No Meds Home Medications and Allergies Home Medications Medication Instructions Recorded Confirmed Type multivitamin (Daily Multi-Vitamin 1 tablet DAILY 09/14/21 04/30/22 History tablet) omega-3 fatty acids 1 cap PO DAILY 09/14/21 04/30/22 History calcium carbonate 600 mg calcium 600 mg PO DAILY 11/14/21 04/30/22 History (1,500 mg) tablet (Calcium) magnesium 30 mg tablet 30 mg PO DAILY 11/14/21 04/30/22 History zinc 50 mg tablet 50 mg PO DAILY 11/14/21 04/30/22 History omeprazole 40 mg capsule,delayed 40 mg PO DAILY #30 caps 01/14/22 04/30/22 Rx release calcium polycarbophil 625 mg 1,250 mg
[2022-05-07] VITALS (13 sets, daily range): BP systolic 97–128; BP diastolic 51–86; PULSE 63–92; RESP 12–18; TEMP 36.6–37.6; O2SAT 94–100
--- NOTE | 2022-05-07 06:58 | WPDHPUPDATE1 ---
History and Physical Update Update Date/Time: 05/07/22 06:58 History and Physical has been reviewed, including an updated exam of the patient. There are NO changes in the patient's condition. Risks, benefits, and alternatives have been discussed and questions answered. Patient agrees to proceed with procedure.
[2022-05-07] MEDS: LACTATED RINGERS 1,000 ML 30 ML IV CONT ×2 (07:00→10:32)
[2022-05-07] MEDS: KETOROLAC 15 MG/ML VIAL (*BKC) IV PUSH (07:05)
[2022-05-07] MEDS: ACETAMINOPHEN 500 MG TABLET 1000 MG PO (07:05)
--- NOTE | 2022-05-07 07:21 | P.PNAN_ITS ---
Anes - Initial Pre Proc Eval Procedure: Operation Date: 05/07/22 07:30 Proposed Procedures p Robotic Total Hysterectomy with Bilateral Salpingo-Oophorectomy - Ke Cruz MD Date/Time: 05/07/22 07:21 Surgeon: Ke Cruz MD Pre Op Diagnosis: persistent dysplasia Patient Data Age: 51 Gender: F Height: 1.6 m Weight: 68.18 kg Allergies Allergy/AdvReac Type Severity Reaction Status Date / Time No Known Allergies Allergy Verified 04/30/22 13:42 Home Medications Medication Instructions Recorded Confirmed Type multivitamin (Daily Multi-Vitamin 1 tablet DAILY 09/14/21 04/30/22 History tablet) omega-3 fatty acids 1 cap PO DAILY 09/14/21 04/30/22 History calcium carbonate 600 mg calcium 600 mg PO DAILY 11/14/21 04/30/22 History (1,500 mg) tablet (Calcium) magnesium 30 mg tablet 30 mg PO DAILY 11/14/21 04/30/22 History zinc 50 mg tablet 50 mg PO DAILY 11/14/21 04/30/22 History omeprazole 40 mg capsule,delayed 40 mg PO DAILY #30 caps 01/14/22 04/30/22 Rx release calcium polycarbophil 625 mg 1,250 mg PO DAILY 04/30/22 04/30/22 History tablet (FiberCon) Patient hx anesthesia problems: none Family hx anesthesia problems: none Results Review: All pre-operative results and documents have been reviewed as part of the pre- operative evaluation. [facility] Past Medical History Medical History Colon polyp Constipation Herpes simplex without complication History of campylobacteriosis Lower abdominal pain, unspecified (~07/2021) Rectal pressure Segmental ileitis Smoker Surgical History Surgical History History of cholecystectomy History of tubal ligation Status post colposcopy Family History Family History Grandparent Carcinoma of colon Other Diabetes mellitus Social History Social History Smoking packs per day: 0.5 Smoking cigarettes per day: 10.0 Years smoked: 25 Smoking pack-years: 12.50 Smoking status: Former smoker Tobacco type: cigarettes Second hand tobacco smoke exposure: No Smoking end date: 08/31/21 Additional smoking assessment comments: use currently of nicorette gum,smoking 23 years Alcohol intake: current Drinks per week: 1 Alcohol use details: 1 every other month Substance use: never Substance use type: does not use Living arrangements: with family Spiritual care concerns: No Anes - Eval Final PreProcedure Day of Procedure 05/07/22 07:21 Patient weight: overweight Heart: regular rate and rhythm Lungs: clear to auscultation Airway: Mallampati scale class II Neurological: alert and oriented Last oral intake: >/= 8 hours ASA classification: II Emergent: no Anesthetic plan: proceed Anesthesia type and monitoring: general ETT and standard monitoring Results Review: All pre-operative results and documents have been reviewed as part of the pre- operative evaluation. Informed Consent: The patient's anesthetic plan and its attendant risks and benefits were discussed with the patient/family/POA. Questions were solicited and answers provided to the satisfaction of the patient/famil
[2022-05-07] MEDS: ceFAZolin 2 GM/D5W 50 ML 2 GM/50 ML BAG IVPB (07:30)
[2022-05-07] MEDS: BUPIVACAINE HCL 0.5% PF 30 ML VIAL INFILTRATE (08:41)
--- NOTE | 2022-05-07 10:08 | W.PM.PROC2 ---
Procedure Note - Detailed Date of Procedure 05/07/22 Pre-op Diagnosis persistent dysplasia Post-op Diagnosis Same (1. Same as pre op 2. Pelvic adhesions) Procedure Performed 1. Robotic assisted laparoscopic bilateral salpingo-oophorectomy. 2. Lysis of adhesions Surgeon Ke Cruz MD Needle Control Cheniller Kg Sidhu Anesthesia General Indications Patient with recurrent and persistent cervical dysplasia. She desires definitive treatment of dysplasia with hysterectomy. Findings Uterus size normal. Cervix very stenotic. Adhesions of fallopian tube to right pelvic sidewall. Small adhesions of the appendix to colon and sidewall. Small adhesions of distal colon to lower right side wall. Normal appearing liver edge. Ovaries atretic appearing. Description of Procedure After informed consent was obtained she was taken to the operating room and general endotracheal anesthesia was administered. She was placed in low lithotomy position. An exam under anesthesia was performed. Uterus Normal size no adnexal masses palpated. She was and prepped and draped in sterile fashion. Rinaldi catheter placed in bladder. Attention was turned to the vagina speculum was inserted. Single-tooth tenaculum placed on anterior lip of the cervix. the cervix was noted to be severely stenotic could not open it with os binder and prior to that it could not get into the entrance of the os with the uterine cervical dilators. A lacrimal duct dilator was then used and was able to pass through some of the scarring at os. The cervix was then able to be dilated with the Cox dilator to a size 7. uterus sounded to 4.5 cm. A size 4 uterine manipulator was inserted and secured With the balloon. A size 3.0 colp cup was secured in the vagina. The vaginal balloon was filled. Then attention was turned to the abdomen Approximately 2 cm above the umbilicus. next .25% marcaine injected subcutaneously at this site. An incision was made horizontal 2 cm above the umbilicus. A Veress needle was inserted confirmation into the abdomen obtained with normal free flow of fluid and normal peritoneal pressures. . A Pneumoperitoneum of 15 mm per mercury was obtained. A 5 mm port was inserted in to the abdomen at this site under laparoscopic visualization. No abdominal or pelvic adhesions noted. A small incision was made approximately 6 cm lateral to the port on the left side of the port. A size 8mm robotic port was inserted under laparoscopic visualization into the abdomen on the left side. The same was done on the right side of the umbilical port. Marcaine was injected subcutaneous before inserting both ports. Another port was inserted after injecting Marcaine at superior and medial to the right lateral port. This was done under laparoscopic visualization. The 5 mm port was then removed and under laparoscopic visualization the 8 mm port for the robotic camera was inserted. The patient was placed in Trendelenburg position the intestines was out of the pelvis. The robotic arms were placed. Attention was then turned to the right round ligament which was cauterized with the ball sealer and ligated. The anterior leaf of the broad ligament was further dissected with cautery. The vesical uterine peritoneum was dissected from the lower uterine segment on the right. This did retract the bladder from the right lower uterus. Attention was then turned to the right side infundibulopelvic ligament which was visualized. There were some adhesions of the right fallopian tube adnexa to the right pelvic sidewall which were lysed. The appendix had some adhesions to the sidewall these were lysed to get better visualization. Later in the surgery a general surgeon was called to determine if we needed to obtain a formal general surgery consultation regarding the appearance of the appendix. The general surgeon did not see any concern with it. The right Infundibulopelvic ligament ligament was ligated with the vessel sealer. The jayesh thorne
[2022-05-07] MEDS: fentaNYL CITRATE INJ (*CRX) 100 MCG/2 ML VIAL 25 MCG IV PUSH ×2 (11:29→11:33)
--- NOTE | 2022-05-07 11:52 | ADMGEN ---
This patient, Santa Roach, was admitted to OB 2nd Floor Room 283-00. Patient/family oriented to hospital policies and general routines including ID bracelet, bed and alarms, visiting hours, pain management, procedures, bathroom and other care routines, personal items, smoking policy, room service/diet, and visiting hours. Information on how to activate the Rapid Response Team has been discussed. Patient/Family are encouraged to report perceived risks to care and to ask questions if they do not understand what they are told or what they should do.
[2022-05-07] MEDS: DEXTROSE 5%/LACTATED RINGERS 1,000 ML 125 ML IV CONT (12:07)
[2022-05-07] MEDS: HYDROcodone/acetaminophen (*CRX) 5-325 MG TABLET 1 TAB PO ×2 (17:31→20:48)
[2022-05-07] MEDS: SIMETHICONE 80 MG TAB.CHEW PO (19:50)
[2022-05-07] MEDS: KETOROLAC 30 MG/ML VIAL (*BKC) IV PUSH (19:51)
[2022-05-08] MEDS: HYDROcodone/acetaminophen (*CRX) 5-325 MG TABLET 1 TAB PO ×2 (03:53→07:57)
[2022-05-08] MEDS: KETOROLAC 30 MG/ML VIAL (*BKC) IV PUSH (03:54)
[2022-05-08] MEDS: SIMETHICONE 80 MG TAB.CHEW PO ×2 (03:54→07:58)
[2022-05-08 03:59] VITALS: BP 105/62; PULSE 71; RESP 18; TEMP 37.6; O2SAT 99
--- NOTE | 2022-05-08 07:49 | WPDANESPN ---
Anes - Prog Note Post-Op Date/Time: 05/08/22 07:49 Cardiovascular status: normal Respiratory status: normal Airway patency: baseline Mental status: baseline Post-Op hydration status: normal Vital Signs: Last Vital Signs Temp 37.6 C H 05/08/22 03:59 Pulse 71 05/08/22 03:59 Resp 18 05/08/22 03:59 BP 105/62 05/08/22 03:59 Pulse Ox 99 05/08/22 03:59 O2 Del Method Room Air 05/08/22 03:59 O2 Flow Rate 2 05/07/22 12:15 Pain Score (VAS): 09/05 I/O: Intake & Output 05/07/22 05/07/22 05/08/22 15:59 23:59 07:59 Intake Total 1750 240 Output Total 425 150 Balance 1325 90 Post-procedural complaints: none Patient Feedback: Patient satisfied with anesthetic care.
[2022-05-08 08:00] VITALS: BP 115/64; PULSE 66; RESP 16; TEMP 36.3; O2SAT 100
--- NOTE | 2022-05-08 09:30 | PM.GYNPNOP ---
ACCOUNT CONTACT ASSOCIATE - A/P Assessment and plan (1) Status post hysterectomy: Code(s): Z90.710 - Acquired absence of both cervix and uterus Status: Acute Plan POD1. Doing well. Plan on discharge once flatus. Postoperative Procedures: Procedures Operation Date: 05/07/22 07:30 Actual Procedure Side Surgeon p Robotic Total Hysterectomy with Bilateral Salpingo-Oophorectomy, Lysis of Adhesions Bilateral Ke Cruz MD Time Spent With Patient Time: Total time spent is greater than 50% in coordination of care (as documented) at patient's floor/unit and/or counseling patient: Time with patient: less than 15 minutes ACCOUNT CONTACT ASSOCIATE- PN:Subj Post-Op Subjective Date/time seen: 05/08/22 09:30 Interval history: She has walked around, no issues. No flatus. She has had a good pain control with oral meds. Has urinated without problems. Mild spotting. No leg pain or chest pain. Subjective: pain is well controlled and patient is tolerating oral intake Review of Systems Review of Systems: All systems reviewed & are unremarkable except as noted in HPI and below Cardiovascular: Cardiovascular: Reports no additional cardiovascular complaints Respiratory: Respiratory: Reports no additional respiratory complaints Gastrointestinal: Gastrointestinal: Reports belching, Denies nausea and Denies vomiting Genitourinary: Genitourinary: Reports no additional female genitourinary complaints Musculoskeletal: Musculoskeletal: Reports no additional musculoskeletal complaints Exam Const: General: comfortable and no acute distress Orientation/consciousness: oriented to person, oriented to place and oriented to time Resp: Auscultation: clear to auscultation bilaterally Cardio: Rate: regular rate Rhythm: regular rhythm GI: GI Palp: Yes Soft to palpation and No Tenderness to palpation present (GI) Auscultation: normal bowel sounds Back/Spine/Pelvis: Other: incisions intact no drainage, abdomen nontender, sl distended, bowel sounds present Neuro: General: oriented to person, oriented to place and oriented to time Extrem: General: no calf tenderness Psych: Mental Status: mental status grossly normal ACCOUNT CONTACT ASSOCIATE - PN: Obj Data Vital Signs Vital Signs: Vital Signs - 24 hr 05/07/22 10:32 05/07/22 10:45 05/07/22 11:00 Temperature 98.4 F Pulse Rate 79 75 68 Respiratory Rate 14 12 12 Blood Pressure 106/61 105/70 116/71 Pulse Oximetry 100 100 100 Oxygen Delivery Simple Face Mask Simple Face Mask Nasal Cannula Oxygen Flow Rate 8 8 3 05/07/22 11:15 05/07/22 11:30 05/07/22 11:43 Temperature Pulse Rate 63 68 67 Respiratory Rate 12 12 12 Blood Pressure 116/79 106/79 109/67 Pulse Oximetry 98 94 97 Oxygen Delivery Nasal Cannula Nasal Cannula Nasal Cannula Oxygen Flow Rate 3 3 3 05/07/22 11:55 05/07/22 12:15 05/07/22 13:10 Temperature 97.8 F Pulse Rate 79 Respiratory Rate 16 Blood Pressure 120/71 Pulse Oximetry 99 99 100 Oxygen Delivery Nasal Cannula Oxygen Flow Rate 2 05/07/22 13:10 05/07/22 16:30 05/07/22 16:30 Temperature 98.0 F Pulse Rate 91 Respiratory Rate 16 Blood Pressure 125/82 Pulse Oximetry 98 Oxygen Delivery Room Air Room Air Oxygen Flow Rate 05/07/22 19:35 05/07/22 19:35 05/07/22 23:32 Temperature 98.7 F 99.6 F Pulse Rate 92 92 84 Respiratory Rate 18 18 18 Blood Pressure 128/81 97/51 L Pulse Oximetry 99 99 97 Oxygen Delivery Room Air Oxygen Flow Rate 05/07/22 23:32 05/08/22 03:59 05/08/22 03:59 Temperature 99.7 F H Pulse Rate 84 71 71 Respiratory Rate 18 18 18 Blood Pressure 105/62 Pulse Oximetry 97 99 99 Oxygen Delivery Room Air Room Air Oxygen Flow Rate 05/08/22 08:00 05/08/22 08:00 Temperature 97.4 F L Pulse Rate 66 66 Respiratory Rate 16 16 Blood Pressure 115/64 Pulse Oximetry 100 100 Oxygen Delivery Room Air Oxygen Flow Rate Intake/Output Intake/Output: Intake & Output 05/05/22 05/06/22 05/07/22 05/08/22 23:59 23
== END 2022-05-08 10:45 | disposition home or self-care (01) ==
LOC: ANHSURGERY 05:50 → ANHOB2 17:22
PROVIDERS: PCP Family Medicine; Visit Provider Obstetrics & Gynecology
PROC: (CPT 58552; principal; 2022-05-07 07:30)
DX: N87.0 Mild cervical dysplasia (principal); B00.9 Herpesviral infection, unspecified; Z87.891 Personal history of nicotine dependence
CPT/HCPCS: 58552; 88307; 99199; A9270; J0690; J1100; J1170; J1885; J2250; J2405; J2704; J2710; J3010; J7030; J7120; J7121

== ENCOUNTER 2022-06-16 11:04 | Emergency (ER) | payer OTHER, SELFPAY ==
[2022-06-16] VITALS (25 sets, daily range): BP systolic 100–115; BP diastolic 66–86; PULSE 80–112; RESP 14–18; TEMP 36.4–37.2; O2SAT 92–100
--- NOTE | ~2022-06-16 | CT_ITS ---
Non-contrast CT scan of the Abdomen and Pelvis Clinical indication: Nausea and vomiting Technique: 5 mm axial scans were obtained through the abdomen and pelvis without intravenous or oral contrast. Dose reduction technique was used on this scan by utilizing automated exposure control and iterative reconstruction technique. The dose-length product (DLP) was 543.75 mGy-cm. COMPARISON: 09/13/2021 Findings: Images through the lung bases reveal no abnormalities. There is no evidence of renal or ureteral calculi. The kidneys and the ureters are nondilated. The liver, spleen, pancreas, gallbladder, and adrenals appear normal. There is no aortic aneurysm. There is no evidence of bowel obstruction. There is diffuse mild dilatation of fluid-filled bowel loo ps. Appendix is mildly prominent, measuring 8 mm in diameter. There is inflammatory change in the felicia tral pelvis, probably about the appendiceal tip ultrasound poorly delineated. No definite abscess or free air. Images through the pelvis were performed. There is no evidence of ascites or lymphadenopathy. Urinary bladder unremarkable. Patient is post hysterectomy. Impression: Minimal dilated appendix with inflammatory changes which are probably surrounding the appendiceal tip . Findings are suspicious for acute appendicitis. No abscess or free air. Mild diffuse distention of fluid-filled bowel loops, suggestive of reactive ileus. Reviewed, dictated and finalized at location [] GRINDER Impression: Minimal dilated appendix with inflammatory changes which are probably surroundi ng the appendiceal tip. Findings are suspicious for acute appendicitis. No absc ess or free air. Mild diffuse distention of fluid-filled bowel loops, suggestive of reactive ile us.
[2022-06-16 12:10] LABS: Influenza A QL RT-PCR Negative (Negative); Influenza B QL RT-PCR Negative (Negative); SARS-CoV-2 RNA PCR Negative (Negative)
[2022-06-16 12:11] LABS: Basophils Absolute Auto 0.02 K/mm3 (0.00-0.10); Basophils Percent Auto 0.1 % (0.0-1.0); Eosinophils Absolute Auto 0.01 K/mm3 (0.02-0.50); Eosinophils Percent Auto 0.1 % (1.0-6.0); Hematocrit 39.2 % (35.0-49.0); Hemoglobin 13.6 g/dL (12.0-15.0); Immature Granulocyte Percent A 0.6 % (0.0-0.0); Lymphocytes Percent Auto 5.6 % (18.0-42.0); Mean Corpuscular HGB Conc 34.7 g/dL (32.0-36.0); Mean Corpuscular Hemoglobin 30.8 pg (27.0-31.0); Mean Corpuscular Volume 88.9 fL (78.0-102.0); Mean Platelet Volume 8.8 fl (9.2-11.8); Monocytes Absolute Auto 1.02 K/mm3 (0.10-0.90); Monocytes Percent Auto 6.3 % (2.0-11.0); Neutrophils Absolute Auto 14.1 K/mm3 (1.7-7.2); Neutrophils Percent Auto 87.3 % (50.0-70.0); Platelet Count Result 286 K/mm3 (150-420); Red Blood Count 4.41 M/mm3 (4.20-5.40); Red Cell Distribution Width 12.6 % (11.6-14.4); White Blood Count 16.2 K/mm3 (4.8-10.8)
--- NOTE | 2022-06-16 12:11 | ED.NAVMDI ---
HPI - Nausea/Vomiting/Diarrhea General Chief complaint: Nausea/Vomiting/Diarrhea Stated complaint: stomach cramps and vomiting Time Seen by Provider: 06/16/22 11:19 Source: patient and RN notes reviewed Mode of arrival: ambulatory Limitations: no limitations History of Present Illness HPI Narrative: Patient has been having intermittent abdominal pain for the last 3 days. She says that it gets worse when she walks. She has been having nausea vomiting now and able to keep anything down. She denies any diarrhea. She was concerned that she might had COVID she took an at-home COVID test today which was negative. She has not been having any fever chills. MD elicited complaint: nausea, vomiting and abdominal pain Onset (ago): day(s) (3) Description of vomiting: bilious Associated nausea: Yes Associated abdominal pain: Yes Location of pain: diffuse Pain consistency: intermittent Severity: moderate Quality: cramping Exacerbating factors: eating Relieving factors: movement Associated symptoms: denies other symptoms Related Data Home Medications Medication Instructions Recorded Confirmed multivitamin (Daily Multi-Vitamin 1 tablet DAILY 09/14/21 06/16/22 tablet) omega-3 fatty acids 1 cap PO DAILY 09/14/21 06/16/22 calcium carbonate 600 mg calcium 600 mg PO DAILY 11/14/21 06/16/22 (1,500 mg) tablet (Calcium) magnesium 30 mg tablet 30 mg PO DAILY 11/14/21 06/16/22 zinc 50 mg tablet 50 mg PO DAILY 11/14/21 06/16/22 calcium polycarbophil 625 mg 1,250 mg PO DAILY 04/30/22 06/16/22 tablet (FiberCon) Allergies Allergy/AdvReac Type Severity Reaction Status Date / Time No Known Allergies Allergy Verified 06/16/22 11:15 Review of Systems Review of Systems: All systems reviewed & are unremarkable except as noted in HPI and below PMFSH Past Medical History Medical History Colon polyp Constipation GERD (gastroesophageal reflux disease) Herpes simplex without complication History of campylobacteriosis Lower abdominal pain, unspecified (~07/2021) Rectal pressure Segmental ileitis Smoker Surgical History Surgical History History of cholecystectomy History of tubal ligation Status post colposcopy Family History Family History Grandparent Carcinoma of colon Other Diabetes mellitus Social History Social History Smoking packs per day: 0.5 Smoking cigarettes per day: 10.0 Years smoked: 25 Smoking pack-years: 12.50 Smoking status: Former smoker Tobacco type: cigarettes Second hand tobacco smoke exposure: No Smoking end date: 08/31/21 Additional smoking assessment comments: use currently of nicorette gum,smoking 23 years Alcohol intake: current Drinks per week: 1 Alcohol use details: 1 every other month Substance use: never Substance use type: does not use Spiritual care concerns: No Exam Const: General: healthy appearing, no acute distress and alert Nutritional Appearance: well nourished and obese Orientation/consciousness: patient oriented x3 Limitations: no limitations HENMT: Head: normal to inspection Ears: external ears normal Face and sinus: normal facial exam Mouth: Yes moist mucous membranes Eyes: Conjunctivae: conjunctivae normal Cornea: corneas normal Pupils: Equal, round and reactive pupils present EOM: EOMs intact bilaterally Neck: Neck: normal visual inspection Resp: Effort & Inspection: normal respiratory effort Auscultation: clear to auscultation bilaterally Cardio: Rate: regular rate Rhythm: regular rhythm GI: GI Palp: Yes Soft to palpation, Yes Tenderness to palpation present (GI) ( Moderate throughout the localized more in the right lower quadrant), Yes Guarding due to palpation present (GI) ( moderate right lower quadrant) and No Rebound tenderness present Auscultati
[2022-06-16 12:14] LABS: Appearance Urine Slightly Cloudy (Clear); Bilirubin Urine 2+ (Negative); Blood Urine 3+ (Negative); Glucose Urine UA Negative (Negative); Ketones Urine 1+ (Negative); Leukocyte Esterase Ur Trace LEU/UL (Negative); Nitrate Urine Negative (Negative); Protein Urine 3+ (Negative); Specific Grav Ur >= 1.030 (1.010-1.020)
[2022-06-16 12:18] LABS: Add Urine Microscopic? YES; Color Urine Brown (Yellow); WBC Urine 0-3 /hpf (0-3)
[2022-06-16 12:19] LABS: Bacteria Urine 1+ /hpf; Squamous Epithelial Cell Urine Few /hpf (Few)
[2022-06-16 12:27] LABS: Alanine Aminotransferase 71 U/L (14-59); Albumin Level 3.9 g/dL (3.4-5.0); Alkaline Phosphatase 70 U/L (46-116); Anion Gap 12 mmol/L (8-16); Aspartate Amino Transferase 39 U/L (15-37); Bilirubin,Total 0.6 mg/dL (0.00-1.00); Blood Urea Nitrogen 16 mg/dL (7-18); Carbon Dioxide 24 mmol/L (21-32); Chloride 102 mmol/L (98-108); Estimated CRCL calculation 63 ml/min; Estimated Glomerular Filt Rate > 60; Glucose 136 mg/dL (70-99); Lipase 22 U/L (16-77); Osmolality Calculated 289 mOsm/kg (285-295); Potassium 3.8 mmol/L (3.5-5.1); Sodium 138 mmol/L (136-145); Total Protein 8.3 g/dL (6.4-8.2)
[2022-06-16 12:34] LABS: CRP 20.5 mg/dL (0.0-0.9); Calcium 9.4 mg/dL (8.5-10.1)
[2022-06-16 12:40] LABS: Lactic Acid Reflex 0.6 mmol/L (0.4-2.0)
--- NOTE | 2022-06-16 13:13 | PC.NURSE ---
Called firer powerhouse at [facility] to request bed for patient. mixing place supervisor to return call when she has a bed or accepting provider.
--- NOTE | 2022-06-16 13:35 | PC.NURSE ---
Contacted [facility] transfer line, currently speaking to provider.
--- NOTE | 2022-06-16 14:31 | PC.NURSE ---
Call returned from Brooklynn at [facility] Transfer center.
--- NOTE | 2022-06-16 14:32 | PC.NURSE ---
Brooklynn at [facility] transfer center states [facility] does not have general surgery conference service coordinator this week. Pt will be on the list at [facility].
[2022-06-16] MEDS: ONDANSETRON INJ 4 MG/2 ML VIAL IV PUSH ×2 (14:48→18:48)
[2022-06-16] MEDS: HYDROmorphone HCL INJ (*CRX) 2 MG/ML VIAL 1 MG IV PUSH ×2 (14:58→18:48)
--- NOTE | 2022-06-16 16:47 | PC.NURSE ---
Spoke with mix house operator at [facility] again, no bed available at this time.
--- NOTE | 2022-06-16 17:11 | PC.NURSE ---
Pt updated that bed are still not available at [facility] or [facility]. Requested to ask about bed in [facility]. Spoke with [facility] transfer line, requested scans be pushed to system. Spoke with radiology, they will push scans to [facility] system.
--- NOTE | 2022-06-16 17:43 | PC.NURSE ---
[facility] at [place] to page out to Dr Hartman (surgeon) to speak provider to provider. Hoping to schedule patient for OR tomorrow.
--- NOTE | 2022-06-16 18:11 | PC.NURSE ---
Spoke with [facility] Transfer center after Dr Brizuela had spoken with Dr Noe (surgeon at [facility]) Transfer center states they are confident they will have a bed tonight, will call back with room number.
[2022-06-16] MEDS: metroNIDAZOLE 500 MG/ISO 100ML 500 MG/100 ML BAG 100 MG IVPB (18:18)
--- NOTE | 2022-06-16 19:02 | PC.NURSE ---
Holly from [facility] in [place] called with bed assignment. Room [address] Decker RN to RN report given to Holly at this time
--- NOTE | 2022-06-16 19:28 | PC.NURSE ---
Called tank house operator at [facility]. Informed patient has a bed at another facility. turf and grounds supervisor to alert Dr Mckeon that he no longer has to schedule this patient for his OR tomorrow.
[2022-06-16] MEDS: DEXTROSE 5%/0.45% SOD CHL 1,000 ML 125 ML IV CONT (19:30)
== END 2022-06-16 20:06 | disposition short-term general hospital (02) ==
PROVIDERS: Emergency Provider Emergency Medicine; PCP Family Medicine
DX: K35.80 Unspecified acute appendicitis (principal); Z87.891 Personal history of nicotine dependence; Z20.822 Contact with and (suspected) exposure to COVID-19
CPT/HCPCS: 36415; 74176; 80053; 81001; 83605; 83690; 85025; 86140; 87636; 96361; 96365; 96367; 96375; 96376; 99285; J0696; J1170; J2405

== ENCOUNTER → 2022-08-14 14:39 | Outpatient (CLI) | payer OTHER, SELFPAY ==
--- NOTE | ~2022-08-14 | MM_ITS ---
EXAMINATION: MM screening [facility] BI w jessica HISTORY: Screening mammogram TECHNIQUE: Craniocaudal and mediolateral oblique 3-D tomosynthesis images were obtained and synthetic 2-D images were generated. CAD analysis was submitted and interpreted. COMPARISON: 04/05/2021, 05/04/2019, 01/28/2016 bilateral screening mammogram examinations BREAST PARENCHYMAL COMPOSITION: There are scattered areas of fibroglandular density. FINDINGS: There is no evidence of suspicious mass, calcification, or architectural distortion to sugg est malignancy in either breast. There has been no suspicious interval change. IMPRESSION: 1. No mammographic evidence of malignancy. 2. Recommend routine screening mammography in one year. BI-RADS Category 1: Negative Reviewed, dictated and finalized at location A. 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
== END ==
PROVIDERS: PCP Family Medicine; Visit Provider Obstetrics & Gynecology
DX: Z12.31 Encounter for screening mammogram for malignant neoplasm of breast (principal)
CPT/HCPCS: 77063; 77067

== ENCOUNTER 2023-09-14 12:52 | Outpatient (CLI) | payer OTHER, SELFPAY ==
--- NOTE | ~2023-09-14 | MM_ITS ---
EXAMINATION: MM screening [facility] BI w jessica HISTORY: Screening TECHNIQUE: Craniocaudal and mediolateral oblique 3-D tomosynthesis images were obtained and synthetic 2-D images were generated. CAD analysis was submitted and interpreted. COMPARISON: Comparison to multiple prior studies sequentially, with oldest reviewed study dated 11/2018. BREAST PARENCHYMAL COMPOSITION: There are scattered areas of fibroglandular density. FINDINGS: There is no evidence of suspicious mass, calcification, or architectural distortion to sugg est malignancy in either breast. There has been no suspicious interval change. IMPRESSION: 1. No mammographic evidence of malignancy. 2. Recommend routine screening mammography in one year. BI-RADS Category 1: Negative Reviewed, dictated and finalized at location A.
== END 2023-09-14 12:53 ==
LOC: MICIMG 12:53
PROVIDERS: PCP Obstetrics & Gynecology; Visit Provider Obstetrics & Gynecology
DX: Z12.31 Encounter for screening mammogram for malignant neoplasm of breast (principal)
CPT/HCPCS: 77063; 77067

== ENCOUNTER 2023-09-18 17:13 | Outpatient (CLI) | payer OTHER, SELFPAY ==
[2023-09-22 17:18] LABS: Lyme Disease Ab (IgM), Blot Negative (Negative); Lyme Disease Ab(IgG), Blot Negative (Negative)
== END 2023-09-18 17:14 | disposition home or self-care (01) ==
LOC: CHSLAB 17:16
PROVIDERS: PCP Family Medicine; Visit Provider Family Medicine
DX: R21 Rash and other nonspecific skin eruption (principal)
CPT/HCPCS: 36415; 86617

== ENCOUNTER 2023-10-07 15:08 | Outpatient (CLI) | payer OTHER, SELFPAY ==
[2023-10-07 15:27] LABS: Basophils Absolute Auto 0.03 K/mm3 (0.00-0.10); Basophils Percent Auto 0.4 % (0.0-1.0); Eosinophils Absolute Auto 0.09 K/mm3 (0.02-0.50); Eosinophils Percent Auto 1.3 % (1.0-6.0); Hemoglobin 12.5 g/dL (12.0-15.0); Immature Granulocyte Absolute 0.01 K/mm3 (0.00-0.00); Immature Granulocyte Percent A 0.1 % (0.0-0.0); Lymphocytes Absolute Auto 2.19 K/mm3 (1.10-4.50); Lymphocytes Percent Auto 32.1 % (18.0-42.0); Mean Corpuscular HGB Conc 32.9 g/dL (32-36); Mean Corpuscular Hemoglobin 29.4 pg (27.0-31.0); Mean Corpuscular Volume 89.4 fL (78.0-102.0); Mean Platelet Volume 8.5 fl (9.2-11.8); Monocytes Percent Auto 7.3 % (2.0-11.0); Neutrophils Percent Auto 58.8 % (50.0-70.0); Platelet Count Result 242 K/mm3 (150-420); Red Blood Count 4.25 M/mm3 (4.20-5.40); Red Cell Distribution Width 12.4 % (11.6-14.4); White Blood Count 6.8 K/mm3 (4.8-10.8)
[2023-10-07 15:46] LABS: D Dimer 0.36 mg/L (0.19-0.50)
[2023-10-07 16:23] LABS: Alanine Aminotransferase 30 U/L (14-59); Albumin Level 3.9 g/dL (3.4-5.0); Alkaline Phosphatase 54 U/L (46-116); Anion Gap 9 mmol/L (4-12); Aspartate Amino Transferase 20 U/L (15-37); Bilirubin,Total 0.2 mg/dL (0.00-1.00); Blood Urea Nitrogen 24 mg/dL (7-18); Calcium 8.8 mg/dL (8.5-10.1); Carbon Dioxide 29 mmol/L (21-32); Chloride 105 mmol/L (98-108); Estimated Glomerular Filt Rate > 60; Glucose 99 mg/dL (70-99); Osmolality Calculated 300 mOsm/kg (285-295); Potassium 3.8 mmol/L (3.5-5.1); Sodium 143 mmol/L (136-145); Total Protein 6.6 g/dL (6.4-8.2)
== END 2023-10-07 15:09 | disposition home or self-care (01) ==
LOC: CHSLAB 15:11
PROVIDERS: PCP Family Medicine; Visit Provider Family Medicine
DX: R60.0 Localized edema (principal)
CPT/HCPCS: 36415; 80053; 85025; 85380

== ENCOUNTER 2023-11-03 14:48 | Outpatient (CLI) | payer OTHER, SELFPAY ==
--- NOTE | ~2023-11-03 | US_ITS ---
EXAMINATION: US soft tissue LE LT DATE: 11/03/2023 15:08 INDICATION: Localized swelling, mass and lump, left lower limb. TECHNIQUE: Multiple grayscale and Doppler ultrasound images of the left lower limb were obtained. COMPARISON: None FINDINGS: In the left calf, there is a 7.6 x 4.5 x 1.3 cm hematoma. IMPRESSION: 1. Hematoma in the left calf. Reviewed, dictated and finalized at location A.
== END 2023-11-03 14:49 | disposition home or self-care (01) ==
LOC: CHSIMG 14:50
PROVIDERS: PCP Family Medicine; Visit Provider Family Medicine
DX: R22.42 Localized swelling, mass and lump, left lower limb (principal)
CPT/HCPCS: 76882

== ENCOUNTER 2024-07-30 14:22 | Outpatient (CLI) | payer OTHER, SELFPAY ==
--- NOTE | ~2024-07-30 | XR_ITS ---
EXAM: XR hip RT min 2V DATE: 07/30/2024 14:37 HISTORY: PAIN IN RIGHT HIP X 3 WKS . COMPARISON: CT abdomen pelvis 06/16/2022. FINDINGS: Normal mineralization. No fracture or dislocation. No lytic or blastic lesion. Mild degene rative change at the right hip and pubic symphysis. Mild greater trochanter enthesopathy. No erosion or periosteal change. Soft tissues within normal limits. IMPRESSION: Mild right hip osteoarthritis. Reviewed, dictated and finalized at location K. SANDER
--- OUTSIDE RECORDS SUMMARY | 2024-07-30 14:25 | XMS_ITS | Clinical Summary ---
Author Organization [facility] Address [address] [place] [address]. [place] [address] [place] [address] Care Team Providers Care Model Maker Plastic Name Role Phone Júnior Regalado MD Primary Care Provider [phone] Allergies No known active allergies Medications omeprazole (PRILOSEC) 40 MG capsule Take 40 mg by mouth daily. Active [place]-3 Fatty Acids (FISH OIL) 500 MG capsule Take 500 mg by mouth daily. Active calcium-magnesiu m-zinc 333-133-5 MG Tab Take 1 tablet by mouth daily. Active multi vitamin/minerals (THERA-M ENHANCED) tablet Take 1 tablet by mouth daily. Active traMADol (ULTRAM) 50 MG tabletIndication s:Acute Pain < 7 Day Supply Take 1 tablet (50 mg total) by mouth every 6 (six) hours as needed for Pain. Indications : Acute Pain < 7 Day Supply 12 tablet 06/17/2022 Active ondansetron (ZOFRAN) 4 MG tablet Take 1 tablet (4 mg total) by mouth every 8 (eight) hours as needed for Nausea. 20 tablet 06/17/2022 Active Active Problems Problem Noted Date Diagnosed Date Acute appendicitis 06/16/2022 Social History Tobacco Use Types Packs/Day Years Used Date Smoking Tobacco: Some Days Cigarettes Started: 06/30/1984 Tobacco Cessation:Ready to Q uit: Yes; Counseling Given: Not Answered Alcohol Use Standard Drinks/Week Comments Yes 0 (1 standard drink = 0.6 oz pur e alcohol) occasionaly Comments Unknown Sex and Gender Information Value Date Recorded Sex Assigned at Not on file Legal Sex Female 5:26 PM SUPERVISOR HOME ECONOMICS Gender Identity Not on file Sexual Orientation Not on file Last Filed Vital Signs Vital Sign Reading Time Taken Comments Blood Pressure 112/53 06/17/2022 12:47 PM SUPERVISOR [employer]CONOM[employer] Pulse 98 06/17/2022 12:47 PM SUPERVISOR HOME ECONOM[employer] Temperature 36.8 ??C (98.2 ??F) 06/17/2022 12:[address] Respiratory Rate 16 06/17/2022 8:00 AM SUPERVISOR HOME ECONOMICS Oxygen Saturation 97% 06/17/2022 12:47 PM SUPERVISOR [employer]CONOM[employer] Inhaled Oxygen Concentration - - Weight 73.6 kg (162 lb 4.1 oz) 06/16/2022 9:42 P M SUPERVISOR [employer]CONOM[employer] Height 160 cm (5' 3 ) 06/16/2022 9:42 PM SUPERVISOR HOME ECONOMICS Body Mass Index 28.74 06/16/2022 9:42 PM SUPERVISOR HOME ECONOMICS Plan of Treatment Health Maintenance Due Date Last Done Comments Cervical Cancer Screening Pa p Smear (Age 30 to 64) Every 3 Years 1969 Colorectal Cancer Screening Colonoscopy (10 Years) 1969 Annual Physical 1972 Pneumococcal Vaccine: Pediat rics (0 to 5 Years) and At-Risk Patients (6 to 64 Years) (1 of 2 - PCV) 09/21/1975 Hepatitis C 09/21/1987 Hepatitis B Vaccines (1 of 3 - 19+ 3-dose series) 1988 Cervical Cancer Screening Pa p with HPV Testing (Age 30 to 64) Every 5 Years 09/21/1999 Cervical Cancer Screening with HPV 09/21/1999 Mammogram Screening 2009 Zoster Vaccines (1 of 2) 09/21/2019 COVID-19 Vaccine (1 - 2023-2 5 season) 2024 Influenza Adult (#1) 2024 DTaP, Tdap and Td Vaccines ( 2 - Td or Tdap) 02/19/2027 02/19/2017 Meningococcal B Vaccine Aged Out No l onger eligible based on patient's age to complete this topic Meningococcal Vaccine Aged Out No penelope ovidio eligible based on patient's age to complete this topic RSV Immunizations Under 20 Months Aged Out No longer eligible based on patient's age to complete this topic Insurance [employer] Advance Directives * Full Code (Latest Code Status on File) Date Activated Date Inactivated Comments 06/16/2022 9:43 PM 06/17/2022 4:08 PM Care Teams Model Maker Plastic Relationship Specialty Start Date End Date Júnior Regalado MD [address] [place] [address] PCP - General FAMILY PRACTICE 06/12/22
== END 2024-07-30 14:23 | disposition home or self-care (01) ==
PROVIDERS: PCP Family Medicine; Visit Provider Family Medicine
DX: M16.11 Unilateral primary osteoarthritis, right hip (principal)
CPT/HCPCS: 73502

== ENCOUNTER 2024-09-01 05:25 | Emergency (ER) | payer OTHER, SELFPAY ==
--- NOTE | ~2024-09-01 | CT_ITS ---
CT of the Abdomen and Pelvis: Indication: Abdominal pain Technique: 2.5 mm axial scans were obtained through the abdomen and pelvis following intravenous adm inistration of 100 cc of Omnipaque 350. Dose reduction technique was used on this scan by utilizing a utomated exposure control and iterative reconstruction technique. The dose-length product (DLP) was 5 02.24 mGy-cm. COMPARISON: 06/16/2022 Findings: Scans through the lung bases are unremarkable. The liver, spleen, pancreas, adrenals and kidneys are within normal limits. Cholecystectomy clips are present. There are mild atherosclerotic calcifications of the aorta. No lymphadenopathy. No bowel obstruction or bowel wall thickening. There is no evidence to suggest acute appendicitis. Images through the pelvis were performed. Urinary bladder unremarkable. Status post hysterectomy. No pelvic mass. No ascites. Impression: No significant abnormalities seen. Reviewed, dictated and finalized at [facility]. NG ROOM SUPERVISOR Impression: No significant abnormalities seen.
--- OUTSIDE RECORDS SUMMARY | 2024-09-01 05:28 | XMS_ITS | Clinical Summary ---
Author Organization [facility] Address [facility] [place] [address] Care Team Providers Care Emt P Name Role Phone Júnior Regalado MD Primary Care Provider [phone] Allergies No known active allergies Medications omeprazole (PRILOSEC) 40 MG capsule Take 40 mg by mouth daily. Active [place]-3 Fatty Acids (FISH OIL) 500 MG capsule [...] on file Legal Sex Female 5:26 PM NUTRITION INSTRUCTOR Gender Identity Not on file Sexual Orientation Not on file Last Filed Vital Signs Vital Sign Reading Time Taken Comments Blood Pressure 112/53 06/17/2022 12:47 PM NUTRITION INSTRUCTOR Pulse 98 06/17/2022 12:47 PM NUTRITION INSTRUCTOR Temperature 36.8 C (98.2 F) 06/17/2022 12:47 PM NUTRITION INSTRUCTOR Respiratory Rate 16 06/17/2022 8:00 AM NUTRITION INSTRUCTOR Oxygen Saturation 97% 06/17/2022 12:47 PM NUTRITION INSTRUCTOR Inhaled Oxygen Concentration - - Weight 73.6 kg (162 lb 4.1 oz) 06/16/2022 9:42 P M NUTRITION INSTRUCTOR Height 160 cm (5' 3 ) 06/16/2022 9:42 PM NUTRITION INSTRUCTOR Body Mass Index 28.74 06/16/2022 9:42 PM NUTRITION INSTRUCTOR Plan of Treatment Health Maintenance Due Date [...] Vaccines (1 of 2) 09/21/2019 COVID-19 Vaccine ( - 2023-2 5 season) 2024 Influenza Adult [...] 9:43 PM 06/17/2022 4:08 PM Care Teams Emt P Relationship Specialty Start Date End Date Júnior Regalado MD [address] [place] [address] PCP - General FAMILY PRACTICE 06/12/22
[2024-09-01 05:31] VITALS: BP 130/90; PULSE 90; RESP 15; TEMP 36.4; O2SAT 100
[2024-09-01 05:51] LABS: Basophils Percent Auto 0.2 % (0.2-1.2); Eosinophils Percent Auto 0.9 % (0-4.4); Hemoglobin 12.9 g/dL (12.0-15.0); Immature Granulocyte Absolute 0.02 K/mm3 (0.00-0.031); Immature Granulocyte Percent A 0.4 % (0-0.5); Lymphocytes Absolute Auto 1.29 K/mm3 (0.9-3.2); Lymphocytes Percent Auto 28.2 % (18.3-44.2); Mean Corpuscular HGB Conc 33.9 g/dl (32-36); Mean Corpuscular Hemoglobin 30.1 pg (26-34); Mean Corpuscular Volume 88.6 fl (80-100); Mean Platelet Volume 9.3 fl (7.4-10.4); Monocytes Absolute Auto 0.3 K/mm3 (0.1-0.6); Neutrophils Absolute Auto 2.9 K/mm3 (1.3-6.7); Neutrophils Percent Auto 63.3 % (45.5-73.1); Platelet Count Result 273 k/mm3 (150-375); Red Blood Count 4.29 M/mm3 (4.2-5.4); Red Cell Distribution Width 12.3 % (11.5-14.5); White Blood Count 4.6 K/mm3 (4.5-10.0)
[2024-09-01 05:55] LABS: Add Urine Microscopic? NO; Appearance Urine Clear (Clear); Bacteria Urine None Seen /hpf; Bilirubin Urine Negative (Negative); Blood Urine Non-Hemolyzed Trace (Negative); Color Urine Yellow (Yellow); Glucose Urine UA Negative (Negative); Ketones Urine Negative (Negative); Leukocyte Esterase Ur Negative LEU/UL (Negative); Nitrate Urine Negative (Negative); Non Pathogenic Casts 0-2; Protein Urine Negative (Negative); RBC Urine 0-2 /hpf (0-2); Specific Grav Ur 1.005 (1.001-1.035); Squamous Epithelial Cell Urine None Seen /hpf (Few); Urobilinogen Urine 0.2 mg/dL (<2.0); WBC Urine 0-5 /hpf (0-3); pH Urine 6.5 (5.0-9.0)
[2024-09-01 06:02] LABS: Alanine Aminotransferase 34 U/L (6-35); Albumin Level 4.2 g/dL (3.5-5.1); Alkaline Phosphatase 50 U/L (38-126); Anion Gap 10 mmol/L (4-12); Aspartate Amino Transferase 30 U/L (14-36); Bilirubin,Total 0.3 mg/dL (0.2-1.3); Blood Urea Nitrogen 19 mg/dL (7-17); Calcium 9.4 mg/dL (8.4-10.2); Carbon Dioxide 24 mmol/L (22-30); Chloride 107 mmol/L (98-107); Estimated CRCL calculation 78 ml/min; Estimated Glomerular Filt Rate > 60; Glucose 111 mg/dL (65-110); Lipase 105 U/L (23-300); Potassium 3.8 mmol/L (3.4-5.0); Sodium 141 mmol/L (137-145)
--- NOTE | 2024-09-01 06:05 | ED.GENADULT ---
HPI - General Adult General Chief complaint: Abdominal Pain Stated complaint: My stomach is burning; lightheaded Time Seen by Provider: 09/01/24 05:33 History of Present Illness HPI narrative: Patient 53-year-old female presents emergency department chief complaint of abdominal pain. Patient reports that she has pain across her abdomen reports that she did have a bowel movement that had a small amount of blood streaking on it the patient states that her abdomen feels crampy does report that she takes omeprazole and reports she has prior history of an appendectomy and a cholecystectomy and tubal ligation. Patient does report she has history of gastroesophageal reflux disease Related Data Home Medications ?Medication ?Instructions ?Recorded ?Confirmed ?Last Taken ?Type omeprazole 40 mg capsule,delayed 40 mg PO DAILY 11/18/23 04/07/24 Unknown History release Allergies Allergy/AdvReac Type Severity Reaction Status Date / Time No Known Allergies Allergy Verified 09/01/24 05:25 Review of Systems Review of Systems: A 10 system review of systems was completed on the patient and is negative except for what is stated in the HPI. Nursing and ancillary documentation was reviewed. [facility] Past Medical History Medical History Bright red blood per rectum Rectal bleeding GERD (gastroesophageal reflux disease) Rectal pressure Constipation Segmental ileitis History of campylobacteriosis Lower abdominal pain, unspecified (~07/2021) Colon polyp Smoker Herpes simplex without complication Surgical History Surgical History H/O: hysterectomy 05/20 History of tubal ligation History of cholecystectomy Status post colposcopy Family History Family History Grandparent Carcinoma of colon Other Diabetes mellitus Social History Social History Smoking packs per day: 1 Smoking cigarettes per day: 20.0 Years smoked: 30 Smoking pack-years: 30.00 Smoking status: Former smoker Tobacco type: cigarettes Second hand tobacco smoke exposure: No Smoking end date: 08/31/21 Additional smoking assessment comments: use currently of nicorette gum,smoking 23 years Alcohol intake: current Drinks per week: 1 Alcohol use details: 1 every other month Substance use: never Substance use type: does not use Lack of Transportation: No Lack of Food: Never True Current Housing: I Have Housing Concerned About Future Housing: No Difficulty Paying Gas/Electric Bills: No Difficulty Paying for Meds: No Currently Unemployed: No Education: High School Diploma/GED Difficulty w/ Childcare or Family Care: No Living arrangements: with family Gender identity (if verbalized by the patient): Female Sexual Orientation (if Verbalized by the Patient): Straight or Heterosexual Spiritual care concerns: No Exam Narrative: GENERAL: Well-appearing, well-nourished, and in no acute distress. HEAD: Normocephalic, atraumatic. EYES: PERRLA and EOMI. ENT: Nares clear, no rhinorrhea or epistaxis. Mucous membranes moist. NECK: Supple. CHEST: Clear to auscultation. No respiratory distress. HEART: Regular rate and rhythm. No murmur heard. Normal peripheral pulses. ABDOMEN: Soft, mild tenderness to palpation the epigastric region, nondistended, normal active bowel sounds. EXTREMITIES: Normal range of motion. No edema. SKIN: Warm, dry, no rash. NEURO: No focal deficits. Alert and oriented x3. PSYCH: Normal mood and affect. Course Vital Signs Vital signs: Vital Signs Temperature 36.4 C 09/01/24 05:31 Pulse Rate 90 09/01/24 05:31 Respiratory Rate 15 09/01/24 05:31 Blood Pressure 130/90 09/01/24 05:31 Pulse Oximetry 100 09/01/24 05:31 Oxygen Delivery Room Air 09/01/24 05:31 Temperature 36.4 C 09/01/24 05:31 Pulse Rate 84 09/01/24 06:39 Respiratory Rate 15 09/01/24 06:39 Blood Pressure 128/76 09/01/24 06:39 Pulse Oximetry 100 09/01/24 06:39 Oxygen Delivery Room Air 09/01/24 05:31 Medical Decision Making [facility] Narrative Medical decision making narrative: Differential diagnosis includes gastritis, colitis, intra-abdominal infection, pancreatitis, diverticulitis Laboratory studies were obtained on the patient showed normal CBC normal CMP urinalysis showed no evidence UTI CT scan of the abdomen pelvis showed no acute abnormality The patient's is describing symptoms consistent with gastritis. Patient had no significant changes showed her hemoglobin from previous studies patient be discharged home to follow-up with her primary care provider Vital Signs Vital Signs: Vital Signs Temperature 36.4 C 09/01/24 05:31 Pulse Rate 90 09/01/24 05:31 Respiratory Rate 15 09/01/24 05:31 Blood Pressure 130/90 09/01/24 05:31 Pulse Oximetry 100 09/01/24 05:31 Oxygen Delivery Room Air 09/01/24 05:31 Temperature 36.4 C 09/01/24 05:31 Pulse Rate 84 09/01/24 06:39 Respiratory Rate 15 09/01/24 06:39 Blood Pressure 128/76 09/01/24 06:39 Pulse Oximetry 100 09/01/24 06:39 Oxygen Delivery Room Air 09/01/24 05:31 Lab Data 09/01/24 05:45 09/01/24 05:45 Labs: Lab Results 09/01/24 09/01/24 Range/Units 05:45 06:19 WBC 4.6 (4.5-10.0) K/mm3 RBC 4.29 (4.2-5.4) M/mm3 Hgb 12.9 (12.0-15.0) g/dL Hct 38.0 (37.0-47.0) % MCV 88.6 (80-100) fl MCH 30.1 (26-34) pg MCHC 33.9 (32-36) g/dl RDW 12.3 (11.5-14.5) % Plt Count 273 (150-375) k/mm3 MPV 9.3 (7.4-10.4) fl Immature Gran % (Auto) 0.4 (0-0.5) % Neut % (Auto) 63.3 (45.5-73.1) % Lymph % (Auto) 28.2 (18.3-44.2) % [place] % (Auto) 7.0 (2.6-8.5) % Eos % (Auto) 0.9 (0-4.4) % Baso % (Auto) 0.2 (0.2-1.2) % Lymph # (Auto) 1.29 (0.9-3.2) K/mm3 [place] # (Auto) 0.3 (0.1-0.6) K/mm3 Eos # (Auto) 0.0 (0-0.3) K/mm3 Baso # (Auto) 0.0 (0.0-0.1) K/mm3 Abs Immat Gran (auto) 0.02 (0.00-0.031) K/mm3 Absolute Neuts (auto) 2.9 (1.3-6.7) K/mm3 Absolute Nucleated RBC 0.000 (0.0-0.012) K/mm3 Nucleated RBC % 0.0 (0.0-0.2) % Sodium 141 (137-145) mmol/L Potassium 3.8 (3.4-5.0) mmol/L Chloride 107 (98-107) mmol/L Carbon Dioxide 24 (22-30) mmol/L Anion Gap 10 (4-12) mmol/L BUN 19 H (7-17) mg/dL Creatinine 0.65 L (0.7-1.0) mg/dL Estim Creat Clear Calc 78 ml/min Estimated GFR > 60 (59 - ) Glucose 111 H (65-110) mg/dL Calcium 9.4 (8.4-10.2) mg/dL Total Bilirubin 0.3 (0.2-1.3) mg/dL AST 30 (14-36) U/L ALT 34 (6-35) U/L Alkaline Phosphatase 50 (38-126) U/L Total Protein 7.0 (6.3-8.2) g/dL Albumin 4.2 (3.5-5.1) g/dL Lipase 105 (23-300) U/L Urine Color Yellow (Yellow) Urine Appearance Clear (Clear) Urine pH 6.5 (5.0-9.0) Ur Specific [place] 1.005 (1.001-1.035) Urine Protein Negative (Negative) mg/dL Urine Glucose (UA) Negative (Negative) mg/dL Urine Ketones Negative (Negative) mg/dL Ur Blood (Man) Non-hemolyzed trace H (Negative) Urine Nitrate Negative (Negative) Urine Bilirubin Negative (Negative) Urine Urobilinogen 0.2 (<2.0) mg/dL Leukocyte Esterase Rfl Negative (Negative) WERO/UL Urine RBC 0-2 (0-2) /hpf Urine WBC 0-5 (0-3) /hpf Ur Squamous Epith Cells None seen (Few) /hpf Urine Bacteria None seen /hpf Urine Casts 0-2 POC Urine HCG, Qual Negative (Negative) Discharge Plan Discharge Clinical Impression: Abdominal pain, Gastritis Patient Disposition: Home, Self-Care Condition: Stable Instructions: Antibiotic Form, Gastritis (ED), Abdominal Pain (ED) Patient Language: Yoruba Prescriptions: New sucralfate [Carafate] 1 gram tablet 1 g PO QID PRN (Reason: Epigastric pain) 10 Days Qty: 40 0RF No Action omeprazole 40 mg capsule,delayed release(DR/EC) 40 mg PO DAILY Follow-up/Referrals: Júnior Regalado MD [Primary Care Provider] - Time of Disposition: 06:53
[2024-09-01 06:21] LABS: BEDSIDEPREGUCG Negative (Negative)
[2024-09-01] MEDS: SODIUM CHLORIDE 0.9% IV 1,000 ML 999 ML IV CONT (06:36)
[2024-09-01] MEDS: ONDANSETRON INJ 4 MG/2 ML VIAL IV PUSH (06:37)
[2024-09-01] MEDS: PANTOPRAZOLE SODIUM IV 40 MG VIAL IV PUSH (06:38)
[2024-09-01 06:39] VITALS: BP 128/76; PULSE 84; RESP 15; O2SAT 100
--- OUTSIDE RECORDS SUMMARY | 2024-09-01 07:01 | XMS_ITS | Clinical Summary ---
Author Organization [facility] Address [facility] [place] [address] Care Team Providers Care Superintendent Water And Sewer Systems Name Role Phone Júnior Regalado MD Primary Care Provider [phone] Allergies No known active allergies Medications omeprazole (PRILOSEC) 40 MG capsule Take 40 mg by mouth daily. 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 Gender Identity Not on file Sexual Orientation Not on file Last Filed Vital Signs Vital Sign Reading Time Taken Comments Blood Pressure 112/53 06/17/2022 12:47 PM FOOD AND BEVERAGE ASSOCIATE Pulse 98 06/17/2022 12:47 PM FOOD AND BEVERAGE ASSOCIATE Temperature 36.8 C (98.2 F) 06/17/2022 12:47 PM FOOD AND BEVERAGE ASSOCIATE Respiratory Rate 16 06/17/2022 8:00 AM FOOD AND BEVERAGE ASSOCIATE Oxygen Saturation 97% 06/17/2022 12:47 PM FOOD AND BEVERAGE ASSOCIATE Inhaled Oxygen Concentration - - Weight 73.6 kg (162 lb 4.1 oz) 06/16/2022 9:42 P M FOOD AND BEVERAGE ASSOCIATE Height 160 cm (5' 3 ) 06/16/2022 9:42 PM FOOD AND BEVERAGE ASSOCIATE Body Mass Index 28.74 06/16/2022 9:42 PM FOOD AND BEVERAGE ASSOCIATE Plan of Treatment Health Maintenance Due Date [...] 9:43 PM 06/17/2022 4:08 PM Care Teams Superintendent Water And Sewer Systems Relationship Specialty Start Date End Date Júnior Regalado MD [address] [place] [address] PCP - General FAMILY PRACTICE 06/12/22
[2024-09-01 07:47] VITALS: BP 103/69; PULSE 71; RESP 15; O2SAT 100
== END 2024-09-01 07:50 | disposition home or self-care (01) ==
LOC: ANHED 06:57
PROVIDERS: Emergency Provider Emergency Medicine; PCP Family Medicine
DX: K29.70 Gastritis, unspecified, without bleeding (principal); K21.9 Gastro-esophageal reflux disease without esophagitis; Z86.0100 Personal history of colon polyps, unspecified; Z87.891 Personal history of nicotine dependence; Z90.49 Acquired absence of other specified parts of digestive tract; Z90.710 Acquired absence of both cervix and uterus
CPT/HCPCS: 36415; 74177; 80053; 81003; 81025; 83690; 85025; 96361; 96374; 96375; 99284; J2405; J2470; J7030; Q9967

== ENCOUNTER 2024-09-28 00:38 | Day surgery (SDC) | payer OTHER, SELFPAY ==
[2024-09-22 09:49] VITALS: BMI 30.5
--- OUTSIDE RECORDS SUMMARY | 2024-09-28 00:41 | XMS_ITS | Clinical Summary ---
Author Organization [facility] Address [facility] [place] [address] Care Team Providers Care Poultry Farm Worker Name Role Phone Júnior Regalado MD Primary Care Provider [phone] Allergies No known active allergies Medications omeprazole (PRILOSEC) 40 MG capsule Take 40 mg by mouth daily. Active [place]-3 Fatty Acids (FISH OIL) 500 MG capsule [...] on file Legal Sex Female 5:26 PM S3B MULTI SENSOR OPERATOR Gender Identity Not on file Sexual Orientation Not on file Last Filed Vital Signs Vital Sign Reading Time Taken Comments Blood Pressure 112/53 06/17/2022 12:47 PM S3B MULTI SENSOR OPERATOR Pulse 98 06/17/2022 12:47 PM S3B MULTI SENSOR OPERATOR Temperature 36.8 C (98.2 F) 06/17/2022 12:47 PM S3B MULTI SENSOR OPERATOR Respiratory Rate 16 06/17/2022 8:00 AM S3B MULTI SENSOR OPERATOR Oxygen Saturation 97% 06/17/2022 12:47 PM S3B MULTI SENSOR OPERATOR Inhaled Oxygen Concentration - - Weight 73.6 kg (162 lb 4.1 oz) 06/16/2022 9:42 P M S3B MULTI SENSOR OPERATOR Height 160 cm (5' 3 ) 06/16/2022 9:42 PM S3B MULTI SENSOR OPERATOR Body Mass Index 28.74 06/16/2022 9:42 PM S3B MULTI SENSOR OPERATOR Plan of Treatment Health Maintenance Due Date [...] Vaccines (1 of 2) 09/21/2019 COVID-19 Vaccine (2023-2 5 season) 2024 DTaP, Tdap and Td Vaccines ( [...] 9:43 PM 06/17/2022 4:08 PM Care Teams Poultry Farm Worker Relationship Specialty Start Date End Date Júnior Regalado MD [address] [place] [address] PCP - General FAMILY PRACTICE 06/12/22
[2024-09-28 08:10] VITALS: BP 109/73; PULSE 81; RESP 16; TEMP 36.5; O2SAT 100; BMI 28.9
--- NOTE | 2024-09-28 08:20 | P.PNAN_ITS ---
Anes - Initial Pre Proc Eval Procedure: Operation Date: 09/28/24 09:30 Proposed Procedures p Esophagogastroduodenoscopy & Colonoscopy - Negrito Castillo MD Date/Time: 09/28/24 08:20 Surgeon: Negrito Castillo MD Pre Op Diagnosis: Hemorrhage of anus and rectum Patient Data Age: 54 Gender: F Height: 1.55 m Weight: 69.5 kg Last Vital Signs Temp 36.5 C 09/28/24 08:10 Pulse 81 09/28/24 08:10 Resp 16 09/28/24 08:10 BP 109/73 09/28/24 08:10 Pulse Ox 100 09/28/24 08:10 O2 Del Method Room Air 09/28/24 08:10 Allergies Allergy/AdvReac Type Severity Reaction Status Date / Time No Known Allergies Allergy Verified 09/28/24 08:16 Home Medications ?Medication ?Instructions ?Recorded ?Confirmed ?Type omeprazole 40 mg capsule,delayed 40 mg PO DAILY 11/18/23 09/28/24 History release Patient hx anesthesia problems: none Family hx anesthesia problems: none Results Review: All pre-operative results and documents have been reviewed as part of the pre- operative evaluation. [facility] Past Medical History Medical History (Updated 09/15/24 @ 15:41 by RANCHO Rooney) History of adenomatous polyp of colon Bright red blood per rectum Rectal bleeding GERD (gastroesophageal reflux disease) Rectal pressure Constipation Segmental ileitis History of campylobacteriosis Lower abdominal pain, unspecified (~07/2021) Colon polyp Smoker Herpes simplex without complication Surgical History Surgical History (Updated 09/27/24 @ 13:24 by Garfield Pantoja DO) Hx of appendectomy H/O: hysterectomy 05/20 History of tubal ligation History of cholecystectomy Status post colposcopy Family History Family History Grandparent Carcinoma of colon Other Diabetes mellitus Social History Social History Smoking packs per day: 1 Smoking cigarettes per day: 20.0 Years smoked: 30 Smoking pack-years: 30.00 Smoking status: Former smoker Tobacco type: cigarettes Second hand tobacco smoke exposure: No Smoking end date: 08/31/21 Additional smoking assessment comments: use currently of nicorette gum,smoking 23 years Alcohol intake: current Drinks per week: 1 Alcohol use details: very rarely Substance use: never Substance use type: does not use Lack of Transportation: No Lack of Food: Never True Current Housing: I Have Housing Concerned About Future Housing: No Difficulty Paying Gas/Electric Bills: No Difficulty Paying for Meds: No Currently Unemployed: No Education: High School Diploma/GED Difficulty w/ Childcare or Family Care: No Living arrangements: with family Gender identity (if verbalized by the patient): Female Sexual Orientation (if Verbalized by the Patient): Straight or Heterosexual Spiritual care concerns: No Anes - Eval Final PreProcedure Day of Procedure 09/28/24 08:20 Patient weight: overweight Heart: regular rate and rhythm Lungs: clear to auscultation Airway: Mallampati scale class II Neurological: alert and oriented Last oral intake: >/= 8 hours ASA classification: II Emergent: no Anesthetic plan: proceed Anesthesia type and monitoring: general GIVS and standard monitoring Results Review: All pre-operative results and documents have been reviewed as part of the pre- operative evaluation. Informed Consent: The patient's anesthetic plan and its attendant risks and benefits were discussed with the patient/family/POA. Questions were solicited and answers provided to the satisfaction of the patient/family/POA.
[2024-09-28] MEDS: LACTATED RINGERS 1,000 ML 150 ML IV CONT (08:30)
--- NOTE | 2024-09-28 09:05 | WPDHPUPDATE1 ---
History and Physical Update Update Date/Time: 09/28/24 09:05 History and Physical has been reviewed, including an updated exam of the patient. There are NO changes in the patient's condition. Risks, benefits, and alternatives have been discussed and questions answered. Patient agrees to proceed with procedure.
--- NOTE | 2024-09-28 09:13 | SUR.OPER ---
EGD [id number]. Colonoscopy start time 912.
[2024-09-28 09:23] VITALS: BP 94/55; PULSE 79; RESP 23; O2SAT 97
[2024-09-28 09:33] VITALS: BP 100/67; PULSE 82; RESP 17; O2SAT 100
[2024-09-28 09:43] VITALS: BP 117/72; PULSE 67; RESP 15; O2SAT 100
== END 2024-09-28 10:02 | disposition home or self-care (01) ==
PROVIDERS: PCP Family Medicine; Referring Provider Nurse Practitioner Family; Visit Provider Internal Medicine Gastroenterology
PROC: 0DJ08ZZ Inspection of Upper Intestinal Tract, Via Natural or Artificial Opening Endoscopic (ICD-10-PCS; CPT 45378; principal; 2024-09-28 09:30)
DX: K21.9 Gastro-esophageal reflux disease without esophagitis (principal); K64.8 Other hemorrhoids; K50.00 Crohn's disease of small intestine without complications; Z98.890 Other specified postprocedural states; Z90.49 Acquired absence of other specified parts of digestive tract; Z98.51 Tubal ligation status; Z87.891 Personal history of nicotine dependence; Z86.0100 Personal history of colon polyps, unspecified; Z80.0 Family history of malignant neoplasm of digestive organs
CPT/HCPCS: 43239; 45378; 88305; J2704; J7120

== ENCOUNTER 2024-12-07 15:11 | Outpatient (CLI) | payer OTHER, SELFPAY ==
--- NOTE | ~2024-12-07 | MM_ITS ---
EXAMINATION: MM screening jarad BI w jessica HISTORY: Screening TECHNIQUE: Craniocaudal and mediolateral oblique 3-D tomosynthesis images were obtained and synthetic 2-D images were generated. CAD analysis was submitted and interpreted. COMPARISON: Comparison to multiple prior studies sequentially, with oldest reviewed study dated 06/2015. BREAST PARENCHYMAL COMPOSITION: Not dense: There are scattered areas of fibroglandular density. FINDINGS: There is no evidence of suspicious mass, calcification, or architectural distortion to sugg est malignancy in either breast. There has been no suspicious interval change. IMPRESSION: 1. No mammographic evidence of malignancy. 2. Recommend routine screening mammography in one year. BI-RADS Category 1: Negative Reviewed, dictated and finalized at location B.
== END 2024-12-07 15:12 | disposition home or self-care (01) ==
LOC: MICIMG 15:11
PROVIDERS: PCP Family Medicine; Visit Provider Obstetrics & Gynecology
DX: Z12.31 Encounter for screening mammogram for malignant neoplasm of breast (principal)
CPT/HCPCS: 77063; 77067

== ENCOUNTER 2024-12-18 15:11 | Emergency (ER) | payer OTHER, SELFPAY ==
[2024-12-18] VITALS (7 sets, daily range): BP systolic 96–115; BP diastolic 67–81; PULSE 80–98; RESP 17–18; TEMP 36.7–36.8; O2SAT 98–100
--- NOTE | ~2024-12-18 | XR_ITS ---
3 VIEWS THORACIC SPINE Ordering provider: Jonas Katz DO History: . Upper back pain x2 days, NKI . Comparison: None. FINDINGS: VERTEBRAL BODIES: Normal height and alignment. No visible fracture or subluxation. Degenerative alfaro es. DISK SPACES: Multilevel narrowing of the disc space in the mid and upper thoracic area is SOFT TISSUES: Normal. IMPRESSION: No acute osseous abnormality of the thoracic spine. Multilevel degenerative disc disease. Reviewed, dictated and finalized at location A.
--- NOTE | 2024-12-18 15:16 | ECG_ITS ---
Test Date: 2024-12-18 15:26:40 Measurements Intervals [place] Rate: 90 P: 61 MS: 147 QRS: 50 QRSD: 87 T: 54 QT: 344 QTc: 423 Interpretive Statements SINUS RHYTHM POSSIBLE RIGHT VENTRICULAR CONDUCTION DELAY BORDERLINE ECG No previous ECG available for comparison Electronically Signed On 12-18-2024 18:13:36 CDT by Kaushik Molina D.O.
--- NOTE | 2024-12-18 15:22 | ED_ITS ---
HPI - General Adult General Chief complaint: Back Pain/Injury Stated complaint: back pain, diarrhea Time Seen by Provider: 12/18/24 15:13 History of Present Illness HPI narrative: Santa presented to the ED with a few concerns. She has upper right back pain that goes to her jaw. She was concerned it could be her heart so she came in. There is no CP or dyspnea. However, she has had a lot of fatigue, aches, nausea, one episode of vomiting and lots of diarrhea. Related Data Home Medications ?Medication ?Instructions ?Recorded ?Confirmed ?Last Taken ?Type omeprazole 40 mg capsule,delayed 40 mg PO DAILY 11/18/23 09/28/24 09/27/24 History release Allergies Allergy/AdvReac Type Severity Reaction Status Date / Time No Known Allergies Allergy Verified 12/18/24 15:20 Review of Systems Review of Systems: All systems reviewed & are unremarkable except as noted in HPI and below PMFSH Past Medical History Medical History History of adenomatous polyp of colon Bright red blood per rectum Rectal bleeding GERD (gastroesophageal reflux disease) Rectal pressure Constipation Segmental ileitis History of campylobacteriosis Lower abdominal pain, unspecified (~07/2021) Colon polyp Smoker Herpes simplex without complication Surgical History Surgical History Hx of appendectomy H/O: hysterectomy 05/20 History of tubal ligation History of cholecystectomy Status post colposcopy Family History Family History Grandparent Carcinoma of colon Other Diabetes mellitus Social History Social History Smoking packs per day: 1 Smoking cigarettes per day: 20.0 Years smoked: 30 Smoking pack-years: 30.00 Smoking status: Former smoker Tobacco type: cigarettes Second hand tobacco smoke exposure: No Smoking end date: 08/31/21 Additional smoking assessment comments: use currently of nicorette gum,smoking 23 years Alcohol intake: current Drinks per week: 1 Alcohol use details: very rarely Substance use: never Substance use type: does not use Lack of Transportation: No Lack of Food: Never True Current Housing: I Have Housing Concerned About Future Housing: No Difficulty Paying Gas/Electric Bills: No Difficulty Paying for Meds: No Currently Unemployed: No Education: High School Diploma/GED Difficulty w/ Childcare or Family Care: No Living arrangements: with family Gender identity (if verbalized by the patient): Female Sexual Orientation (if Verbalized by the Patient): Straight or Heterosexual Spiritual care concerns: No Exam Const: General: cooperative, healthy appearing, comfortable, no acute distress, well developed, alert, awake and Physically active Orientation/consciousness: oriented to person, oriented to place and oriented to time HENMT: Head: normal to inspection, normocephalic and atraumatic Ears: hearing grossly normal bilaterally and external ears normal Face/Nose/Sinus: Normal external nose present Eyes: General: appearance normal, both eyes and all related structures Periorbital: periorbital findings normal Sclera: sclerae normal Pupils: Equal, round and reactive pupils present Neck: Neck: normal visual inspection Chest: Chest palpation & inspection: normal inspection of the chest Resp: Effort & Inspection: normal respiratory effort, able to speak in complete sentences and no respiratory distress Auscultation: clear to auscultation bilaterally Cardio: Jugular venous distension: no JVD Rate: regular rate Rhythm: regular rhythm GI: Inspection: normal to inspection GI Palp: Yes Soft to palpation Auscultation: normal bowel sounds Skin: General skin exam: normal color and no rashes or lesions noted Neuro: General: oriented to person, oriented to place and oriented to time Cranial nerves: Yes Equal, round and reactive pupils present Extrem: General: normal to inspection Course Course Emergency Course: She declined meds for pain and nausea. EKG shows sinus rhythm with a rate of 90, normal axis, no ST elevation/depression FINDINGS: VERTEBRAL BODIES: Normal height and alignment. No visible fracture or subluxation. Degenerative changes. DISK SPACES: Multilevel narrowing of the disc space in the mid and upper thoracic area is SOFT TISSUES: Normal. IMPRESSION: No acute osseous abnormality of the thoracic spine. Multilevel degenerative disc disease. labs largely unremarkable. Vital Signs Vital signs: Vital Signs Temperature 98.2 F 12/18/24 15:15 Pulse Rate 98 12/18/24 15:15 Respiratory Rate 18 12/18/24 15:15 Blood Pressure 115/81 12/18/24 15:15 Pulse Oximetry 100 12/18/24 15:15 Oxygen Delivery Room Air 12/18/24 15:15 Temperature 98.2 F 12/18/24 15:15 Pulse Rate 98 12/18/24 15:15 Respiratory Rate 18 12/18/24 15:15 Blood Pressure 115/81 12/18/24 15:15 Pulse Oximetry 100 12/18/24 15:15 Oxygen Delivery Room Air 12/18/24 15:15 Medical Decision Making Vital Signs Vital Signs: Vital Signs Temperature 98.2 F 12/18/24 15:15 Pulse Rate 98 12/18/24 15:15 Respiratory Rate 18 12/18/24 15:15 Blood Pressure 115/81 12/18/24 15:15 Pulse Oximetry 100 12/18/24 15:15 Oxygen Delivery Room Air 12/18/24 15:15 Temperature 98.2 F 12/18/24 15:15 Pulse Rate 98 12/18/24 15:15 Respiratory Rate 18 12/18/24 15:15 Blood Pressure 115/81 12/18/24 15:15 Pulse Oximetry 100 12/18/24 15:15 Oxygen Delivery Room Air 12/18/24 15:15 Discharge Plan Discharge Clinical Impression: Acute viral syndrome, Back pain, thoracic Patient Disposition: Home Condition: Stable Instructions: Antibiotic Form Patient Language: Ecuadorean Prescriptions: New meloxicam 15 mg tablet 15 mg PO DAILY Qty: 14 0RF No Action omeprazole 40 mg capsule,delayed release(DR/EC) 40 mg PO DAILY Follow-up/Referrals: Júnior Regalado MD [Primary Care Provider] -
[2024-12-18 15:28] LABS: Basophils Absolute Auto 0.02 K/mm3 (0.00-0.10); Basophils Percent Auto 0.3 % (0.0-1.0); Eosinophils Absolute Auto 0.03 K/mm3 (0.02-0.50); Eosinophils Percent Auto 0.4 % (1.0-6.0); Hematocrit 37.1 % (35.0-49.0); Hemoglobin 12.6 g/dL (12.0-15.0); Immature Granulocyte Absolute 0.02 K/mm3 (0.00-0.00); Immature Granulocyte Percent A 0.3 % (0.0-0.0); Lymphocytes Absolute Auto 0.56 K/mm3 (1.10-4.50); Mean Corpuscular Hemoglobin 29.9 pg (27.0-31.0); Mean Corpuscular Volume 87.9 fL (78.0-102.0); Monocytes Absolute Auto 0.43 K/mm3 (0.10-0.90); Monocytes Percent Auto 5.4 % (2.0-11.0); Neutrophils Percent Auto 86.6 % (50.0-70.0); Platelet Count Result 216 K/mm3 (150-420); Red Blood Count 4.22 M/mm3 (4.20-5.40); Red Cell Distribution Width 12.3 % (11.6-14.4)
[2024-12-18 15:39] LABS: Alanine Aminotransferase 49 U/L (6-35); Albumin Level 4.4 g/dL (3.5-5.1); Alkaline Phosphatase 54 U/L (38-126); Anion Gap 6 mmol/L (4-12); Aspartate Amino Transferase 45 U/L (14-36); Bilirubin,Total 0.4 mg/dL (0.2-1.3); Blood Urea Nitrogen 19 mg/dL (7-17); Calcium 9.2 mg/dL (8.4-10.2); Carbon Dioxide 25 mmol/L (22-30); Chloride 106 mmol/L (98-107); Estimated CRCL calculation 68 ml/min; Estimated Glomerular Filt Rate > 60; Glucose 95 mg/dL (65-110); INR 0.9; Lipase 93 U/L (23-300); Osmolality Calculated 286 mOsm/kg (285-295); Potassium 3.6 mmol/L (3.4-5.0); Prothrombin Time 10.2 Seconds (9.50-12.1); Sodium 137 mmol/L (137-145); Total Protein 6.9 g/dL (6.3-8.2)
[2024-12-18 15:51] LABS: NT Pro B Type Natriuretic Pept 41 pg/mL (19.9-100); Troponin I < 0.012 ng/mL (0.000-0.034)
--- NOTE | 2024-12-18 16:15 | PC.NURSE ---
Covid culture sent to lab
[2024-12-18 16:21] LABS: Add Urine Microscopic? YES; Appearance Urine Clear (Clear); Bilirubin Urine Negative (Negative); Blood Urine 1+ (Negative); Color Urine Light Yellow (Yellow); Glucose Urine UA Negative (Negative); Ketones Urine Negative (Negative); Leukocyte Esterase Ur Negative LEU/UL (Negative); Nitrate Urine Negative (Negative); Protein Urine Negative (Negative); Specific Grav Ur <= 1.005 (1.010-1.020); Urobilinogen Urine 0.2 mg/dL (0.2-1.0)
[2024-12-18 16:29] LABS: Bacteria Urine Trace /hpf; Squamous Epithelial Cell Urine Rare /hpf (Few); WBC Urine None seen /hpf (0-3)
[2024-12-18 16:52] LABS: Influenza A QL RT-PCR Negative (Negative); Influenza B QL RT-PCR Negative (Negative); RSV RNA, RT-PCR Negative (Negative); SARS-CoV-2 RNA PCR Negative (Negative)
== END 2024-12-18 17:05 | disposition home or self-care (01) ==
PROVIDERS: Emergency Provider Family Medicine; PCP Family Medicine
DX: B34.9 Viral infection, unspecified (principal); M54.6 Pain in thoracic spine; Z87.891 Personal history of nicotine dependence; Z20.822 Contact with and (suspected) exposure to COVID-19
CPT/HCPCS: 36415; 72072; 80053; 81001; 83690; 83880; 84484; 85025; 85610; 87637; 93005; 99284

== ENCOUNTER 2025-03-31 07:44 | Outpatient (CLI) | payer OTHER, SELFPAY ==
--- OUTSIDE RECORDS SUMMARY | 2025-03-31 07:48 | XMS_ITS | Clinical Summary ---
Author Organization [facility] Address [facility] [place] [address] Care Team Providers Care Transportation Assistant Name Role Phone Júnior Regalado MD Primary Care Provider [phone] Allergies No known active allergies Medications omeprazole (PRILOSEC) 40 MG capsule Take 40 mg by mouth daily. 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 Oxygen Saturation 97% 06/17/2022 12:47 PM 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 Inhaled Oxygen Concentration - - Weight 73.6 kg (162 lb 4.1 oz) 06/16/2022 9:42 P M 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 Height 160 cm (5' 3) 06/16/2022 9:42 PM 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 Body Mass Index 28.74 06/16/2022 9:42 PM 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 Plan of Treatment Health Maintenance Due Date Last Done Comments Cervical Cancer Screening Pa p Smear (Age 30 to 64) Every 3 Years 1969 Colorectal Cancer Screening Colonoscopy (10 Years) 1969 Annual Physical 1972 Hepatitis C 09/21/1987 Hepatitis B Vaccines (1 of 3 - 19+ 3-dose series) 1988 Pneumococcal Vaccine: 50+ Ye ars (1 of 2 - PCV) 1988 Cervical Cancer Screening Pa p with HPV Testing (Age 30 to 64) Every 5 Years 09/21/1999 Cervical Cancer Screening with HPV 09/21/1999 Mammogram Screening 2009 Zoster Vaccines (1 of 2) 09/21/2019 COVID-19 Vaccine ( - 2023-2 5 season) 2025 Influenza Adult (#1) 2025 DTaP, Tdap and Td Vaccines ( 2 [...] 9:43 PM 06/17/2022 4:08 PM Care Teams Transportation Assistant Relationship Specialty Start Date End Date Júnior Regalado MD [address] [place] [address] PCP - General FAMILY PRACTICE 06/12/22
== END 2025-03-31 07:45 | disposition home or self-care (01) ==
LOC: ANHAUDASC 07:45
PROVIDERS: PCP Family Medicine; Visit Provider Otolaryngology
DX: H93.11 Tinnitus, right ear (principal); H90.41 Sensorineural hearing loss, unilateral, right ear, with unrestricted hearing on the contralateral side
CPT/HCPCS: 92557; 92567